=== PATIENT | male | born 1965 | race Two or more races ===

== ENCOUNTER 2016-08-15 21:02 | Inpatient (IN) | payer OTHER ==
[2016-08-15] MEDS ORDERED: KETOROLAC TROMETHAMINE 30 MG/1 ML VIAL IVPUSH ONE (22:07)
[2016-08-15] MEDS ORDERED: KETOROLAC TROMETHAMINE 30 MG/1 ML VIAL ONE (22:16)
--- NOTE | 2016-08-15 22:46 | PDOC ---
History of Present Illness - General History Source: Patient Exam Limitations: No Limitations <Stephane Capellan - Last Filed: 08/15/16 22:46> <Keanu Milligan - Last Filed: 08/16/16 01:48> - General Chief Complaint: Shortness of Breath Stated Complaint: DIFF BREATHING, PAIN Time Seen by Provider: 08/15/16 21:43 - History of Present Illness Initial Comments: 08/15/16 22:46 The patient is a 50 year old male, with a significant past medical history of Kidney stone, anxiety, depression and bipolar disorder, who presents to the emergency department with shortness of breath and left upper quadrant abdominal pain onset today. He describes his pain as moderate in severity, with radiation to the back. He notes that the pain is exacerbated when the region is palpated. He states that he was recently discharged from [facility] for the same symptoms 3 days ago. The patient denies chest pain, headache and dizziness. Denies fever, chills, nausea, vomit, diarrhea and constipation. Allergies: None Past surgical history: Cholecystectomy Social history: Daily alcohol use (3 beers). Pack a day smoker. Cocaine use. ( Stephane Capellan) Past History <Stephane Capellan - Last Filed: 08/15/16 22:46> - Past Medical History Anemia: No Asthma: No Cancer: No Cardiac Disorders: No CVA: No COPD: No CHF: No Dementia: No Diabetes: No GI Disorders: No Disorders: Yes (KIDNEY STONE) HTN: No Hypercholesterolemia: No Kidney Stones: Yes Liver Disease: No Psychiatric Problems: Yes (anxiety,depression,bipolar) Suicide Attempt (Hx): No Seizures: No Thyroid Disease: Yes (?) - Surgical History Abdominal Surgery: No Appendectomy: No Cardiac Surgery: No Cholecystectomy: Yes (in 2011) Lung Surgery: No Neurologic Surgery: No Orthopedic Surgery: No - Reproductive History Testicular Surgery: No - Immunization History Immunization Up to Date: Yes - Psycho/Social/Smoking Cessation Hx Anxiety: Yes Suicidal Ideation: No Smoking History: Current every day smoker Have you smoked in the past 12 months: Yes Number of Cigarettes Smoked Daily: 20 Information on smoking cessation initiated: No 'Breaking Loose' booklet given: 02/16/15 Hx Alcohol Use: No Drug/Substance Use Hx: No Substance Use Type: Alcohol, Cocaine Hx Substance Use Treatment: Yes <Keanu Milligan - Last Filed: 08/16/16 01:48> - Past Medical History Allergies/Adverse Reactions: Allergies Allergy/AdvReac Type Severity Reaction Status Date / Time No Known Allergies Allergy Verified 08/15/16 21:10 Home Medications: Ambulatory Orders NK [No Known Home Medication] 04/22/15 Cardiac Specific PMH - Complaint Specific PMHX Pacemaker: No <Keanu Milligan - Last Filed: 08/16/16 01:48> Review of Systems - Review of Systems Able to Perform ROS?: Yes <Stephane Capellan - Last Filed: 08/15/16 22:46> <Keanu Milligan - Last Filed: 08/16/16 01:48> - Review of Systems Comments:: 08/15/16 22:47 CONSTITUTIONAL: No fever, no chills, no fatigue EYES: No visual changes ENT: No ear pain, no sore throat CARDIOVASCULAR: No chest pain, no palpitations RESPIRATORY: +Shortness of breath, No cough GI: +Left upper quadrant abdominal pain. No nausea, no vomiting, no constipation , no diarrhea GENITOURINARY: No dysuria, no frequency, no hematuria MUSKULOSKELETAL: No backpain, no joint pain, no myalgias SKIN: No rash NEURO: No headache (Stephane Capellan) *Physical Exam <Stephane Capellan - Last Filed: 08/15/16 22:46> <Keanu Milligan - Last Filed: 08/16/16 01:48> - Vital Signs Last Vital Signs Temp Pulse Resp BP Pulse Ox 98.1 F 87 22 156/88 94 L 08/15/16 21:10 08/15/16 22:00 08/15/16 21:10 08/15/16 21:10 08/15/16 21:10 - Physical Exam Comments: 08/15/16 22:47 CONSTITUTIONAL: Well-appearing; well-nourished; in no apparent distress HEAD: Normocephalic; atraumatic EYES: PERRL; EOM intact ENMT: External appears normal; normal oropharynx NECK: Supple; non-tender; no cervical lymphadenopathy CARD: Normal S1, S2; no murmurs, rubs, or gallops CHEST: (+) Reproducible chest wall tenderness to the 4th and 5th intercoastal spaces. RESP: Normal chest excursion with respiration; breath sounds clear and equal bilaterally; no wheezes, rhonchi, or rales ABD: Soft, non-distended; non-tender; no palpable organomegaly, no palpable hernias EXT: Normal ROM in all four extremities; non-tender to palpation; distal pulses intact SKIN: Warm, dry, no rash NEURO: No focal neurological deficiencies. (Stephane Capellan) Heart Score/ECG Review - History History: Slightly suspicious - Electrocardiogram EKG: Non specific repolarization disturbance - Age Age: 45-65 - Risk Factors Risk Factors Heart Score: Yes Hx Hypertension, Yes Smoking History Based on the list above the patient has:: 1-2 risk factors - Troponin Troponin: </= normal limit - Score Heart Score - Total: 3 <Keanu Milligan - Last Filed: 08/16/16 01:48> ED Treatment Course - LABORATORY CBC & Chemistry Diagram: 08/15/16 22:33 08/15/16 22:10 <Stephane Capellan - Last Filed: 08/15/16 22:46> - LABORATORY CBC & Chemistry Diagram: 08/15/16 22:33 08/15/16 22:10 <Keanu Milligan - Last Filed: 08/16/16 01:48> - ADDITIONAL ORDERS Additional order review: Laboratory Results 08/15/16 08/15/16 08/15/16 22:51 22:33 22:10 INR 1.05 Sodium Potassium Chloride Carbon Dioxide Anion Gap BUN Creatinine Creat Clearance w eGFR Random Glucose Calcium Magnesium Total Bilirubin AST ALT Alkaline Phosphatase Creatine Kinase Creatine Kinase Index CK-MB (CK-2) CK-MB (CK-2) Rel Index Cancelled Troponin I B-Natriuretic Peptide 6074.39 H Total Protein Albumin 08/15/16 22:10 INR Sodium 141 Potassium 4.7 D Chloride 108 H Carbon Dioxide 23 Anion Gap 10 BUN 44 H D Creatinine 3.1 H D Creat Clearance w eGFR 21.61 Random Glucose 72 L D Calcium 7.9 L Magnesium 2.5 H Total Bilirubin 0.3 AST 44 H D ALT 37 D Alkaline Phosphatase 141 H D Creatine Kinase 323 H D Creatine Kinase Index 1.8 CK-MB (CK-2) 5.915 H CK-MB (CK-2) Rel Index Troponin I 0.02 B-Natriuretic Peptide Total Protein 6.6 Albumin 2.5 L D 08/15/16 22:33 RBC 4.46 MCV 83.6 MCHC 32.4 RDW 14.6 MPV 8.2 Neutrophils % 72.1 Lymphocytes % 13.5 D Monocytes % 8.3 Eosinophils % 5.6 H D Basophils % 0.5 - RADIOLOGY Radiology Studies Ordered: Category Date Time Status CHEST CT WITHOUT CONTRAST [CT] Stat CT Scan 08/16/16 00:21 Taken CHEST X-RAY PORTABLE* [RAD] Stat Radiology 08/15/16 21:13 Taken - Medications Given in the ED: ED Medications Discontinued Medications Generic Name Dose Route Start Last Admin Trade Name Ana Laura PRN Reason Stop Dose Admin Aspirin 325 mg 08/16/16 01:08 08/16/16 01:29 Ecotrin - PO 08/16/16 01:09 325 mg ONCE ONE Administration Furosemide 80 mg 08/15/16 23:28 08/15/16 23:48 Lasix Injection - IVPUSH 08/15/16 23:29 80 mg ONCE ONE Administration Ketorolac Tromethamine 30 mg 08/15/16 22:07 08/15/16 22:25 Toradol Injection - IVPUSH 08/15/16 22:08 30 mg ONCE ONE Administration Nitroglycerin 1 inch 08/16/16 01:08 08/16/16 01:29 Nitro-Bid 2% Paste - TD 08/16/16 01:09 1 inch ONCE ONE Administration Oxycodone/Acetaminophen 1 combo 08/16/16 01:14 08/16/16 01:29 Percocet 5/325 - PO 08/16/16 01:15 1 combo ONCE ONE Administration Medical Decision Making <Stephane Capellan - Last Filed: 08/15/16 22:46> <Keanu Milligan - Last Filed: 08/16/16 01:48> - Medical Decision Making 08/16/16 01:25 Patient is a 50-year-old male with history of hypertension, alcohol and cocaine use who presents with pleuritic and reproducible left-sided chest pain shortly after discharge from [facility]. Patient endorses that he last used cocaine 48 hours prior to arrival. In the ER, patient is awake and alert, afebrile, nontoxic appearing, with oxygen saturation of 95% on room air, with reproducible left sided chest wall tenderness to palpation within the intercostal spaces #4 and 5. I suspect pleurisy; patient does not appear cocaine toxic at this time. There is no rash and I do not suspect herpes zoster. EKG reveals normal sinus rhythm, with a ventricular rate of 87, with symmetrical T wave inversions in 1, aVL, V5 and V6 as well as inverted T waves in 2 and flat T waves in aVF when compared to previous EKG obtained 04/22/2015. ACS is likley. Chest x-ray reveals cardiomegaly, cephalization, interstitial edema and intralobular thickening which is most prominent on the right. Lung findings may be related to patient's smoking of cocaine (crack lung). CBC is within normal limit. CMP reveals elevated BUN and creatinine when compared to previous consistent with acute renal insufficiency. Magnesium is noted to be 2.5. Sodium bicarbonate is noted to be 23 and anion gap is noted to be 10. Troponin is negative at this time. Patient had received aspirin-325 mg by mouth, transdermal nitroglycerin-1 inch, as well as Lasix-80 mg IV. No significant diuresis has been observed at this time. (Keanu Milligan) *DC/Admit/Observation/Transfer <Stephane Capellan - Last Filed: 08/15/16 22:46> - Discharge Dispostion Admit: Yes <Keanu Milligan - Last Filed: 08/16/16 01:48> Diagnosis at time of Disposition: Acute coronary syndrome Acute renal failure Qualifiers: Acute renal failure type: unspecified Qualified Code(s): N17.9 - Acute kidney failure, unspecified - Discharge Dispostion Condition at time of disposition: Fair - Attestations Scribe Attestion: 08/15/16 22:47 Documentation prepared by Stephane Capellan, acting as medical office technician for Keanu Milligan MD (Stephane Capellan) Physician Attestion: 08/16/16 01:25 The documentation was prepared by the scribe under my direct supervision. I have reviewed the documentation which correctly represents the findings, medical decision-making and critical action taken by me. (Keanu Milligan)
[2016-08-15 22:52] LABS: BASOPHIL 0.5 % (0-2.0); EOSINOPHIL 5.6 % (0-4.5); MCH 27.1 pg (25.7-33.7); MCHC 32.4 g/dl (32.0-35.9); MEAN CELL VOLUME 83.6 fl (80-96); MEAN PLT VOLUME 8.2 fl (7.5-11.1); NEUTROPHILS 72.1 % (42.8-82.8); PLATELET COUNT 273 K/MM3 (134-434); RDW 14.6 % (11.9-15.9); WHITE BLOOD COUNT 10.1 K/mm3 (4.0-10.0)
[2016-08-15 23:14] LABS: ALBUMIN 2.5 g/dl (3.4-5.0); BILIRUBIN,TOTAL 0.3 mg/dL (0.2-1.0); CALCIUM 7.9 mg/dL (8.5-10.1); COCKROFT - GAULT 39.07; CREATININE 3.1 mg/dL (0.7-1.3); MAGNESIUM 2.5 mg/dL (1.8-2.4); TOT PROT 6.6 g/dl (6.4-8.2)
[2016-08-15 23:17] LABS: TROPONIN I 0.02 ng/ml (0.00-0.05)
[2016-08-15] MEDS ORDERED: FUROSEMIDE 40 MG/4 ML INJECTABLE VIAL IVPUSH ONE (23:28)
[2016-08-15 23:35] LABS: INR 1.05 (0.82-1.09); PROTHROMBIN TIME (PATIENT) 11.6 SEC (9.98-11.88)
[2016-08-16] MEDS ORDERED: ASPIRIN 325 MG ENTERIC COATED TABLET (FP) PO ONE (01:08)
[2016-08-16] MEDS ORDERED: NITROGLYCERIN 2% OINTMENT - 1GM PACKET TD ONE ×2 (01:08→01:23)
[2016-08-16] MEDS ORDERED: OXYCODONE/APAP 5/325MG COMBO TABLET PO ONE (01:14)
[2016-08-16] MEDS ORDERED: ASPIRIN 325 MG TABLET ONE (01:16)
[2016-08-16] MEDS ORDERED: OXYCODONE/APAP 5/325MG COMBO TABLET ONE (01:16)
--- NOTE | 2016-08-16 02:53 | HP ---
[id number] year old man with h/o anxiety, depression, bipolar, schizoaffective disorder and renal colic who present today with SOB and palpitations in the setting of crack use today. He sought treatment 08/11 for similar c/o at [facility] for which he left AMA. He also felt a "pop" in his upper back during an episode of coughing. ER course was notable for: (1) ARMIDA (2) elevated BNP (3) EKG changes notable for twi I, II, V5, V6 Recent Travel: denies PAST MEDICAL HISTORY: anxiety, bipolar d/o, schizoaffective, kidney stones PAST SURGICAL HISTORY: cholecystectomy, bilateral rotator cuff repair Social History: Smoking: current daily 19 pack years Alcohol: 3-4 daily [place] Drugs: $25 crack cocaine daily Multiple incarcerations Family History: father in his 60's from "heart disease" mother in her 60's from "heart disease" brother alive with CKD Allergies No Known Allergies Allergy (Verified 08/15/16 21:10) HOME MEDICATIONS: Home Medications 3 Medication Instructions Recorded NK [No Known Home Medication] 04/22/15 REVIEW OF SYSTEMS CONSTITUTIONAL: Absent: fever, chills, diaphoresis, generalized weakness, malaise, loss of appetite, weight change HEENT: Absent: rhinorrhea, nasal congestion, throat pain, throat swelling, difficulty swallowing, mouth swelling, ear pain, eye pain, visual changes CARDIOVASCULAR: Absent: chest pain, syncope, irregular heart rate, lightheadedness palpitations s/p crack use, peripheral edema RESPIRATORY: Absent: dyspnea with exertion, wheezing, stridor, hemoptysis productive cough with yellow sputum, SOB at rest, 3 pillow orthopnea GASTROINTESTINAL: Absent: abdominal pain, abdominal distension, nausea, vomiting, diarrhea, constipation, melena, hematochezia GENITOURINARY: Absent: dysuria, frequency, urgency, hesitancy, hematuria, flank pain, genital pain MUSCULOSKELETAL: Absent: myalgia, arthralgia, joint swelling, back pain, neck pain SKIN: Absent: rash, itching, pallor HEMATOLOGIC/IMMUNOLOGIC: Absent: easy bleeding, easy bruising, lymphadenopathy, frequent infections ENDOCRINE: Absent: unexplained weight gain, unexplained weight loss, heat intolerance, cold intolerance NEUROLOGIC: Absent: headache, focal weakness or paresthesias, dizziness, unsteady gait, seizure, mental status changes, bladder or bowel incontinence PSYCHIATRIC: Absent: anxiety, depression, suicidal or homicidal ideation, hallucinations. PHYSICAL EXAMINATION Vital Signs - 24 hr 3 08/15/16 08/15/16 21:10 22:00 Temperature 98.1 F Pulse Rate 94 H 87 Respiratory 22 Rate Blood Pressure 156/88 O2 Sat by Pulse 94 L Oximetry (%) GENERAL: Awake, alert, and fully oriented, in no acute distress. HEAD: Normal with no signs of trauma. EYES: Pupils equal, round and reactive to light, extraocular movements intact, sclera anicteric, conjunctiva clear. No lid lag. EARS, NOSE, THROAT: Ears normal, nares patent, oropharynx clear without exudates. Moist mucous membranes. NECK: Normal range of motion, supple without lymphadenopathy, JVD, or masses. LUNGS: Breath sounds equal. No wheezes. Fine crackles in bases bilaterally. No accessory muscle use. HEART: Regular rate and rhythm, normal S1 and S2 without murmur, rub or gallop. ABDOMEN: Soft, nontender, not distended, normoactive bowel sounds, no guarding, no rebound, no masses. No hepatomegaly or splenomegaly. MUSCULOSKELETAL: Normal range of motion at all joints. No bony deformities or tenderness. No CVA tenderness. Tenderness present in left upper back 8th rib. UPPER EXTREMITIES: 2+ pulses, warm, well-perfused. No cyanosis. No clubbing. No peripheral edema. LOWER EXTREMITIES: 2+ pulses, warm, well-perfused. No calf tenderness. No peripheral edema. NEUROLOGICAL: Cranial nerves II-XII intact. Normal speech. Normal gait. PSYCHIATRIC: Cooperative. Good eye contact. Appropriate mood and affect. SKIN: Warm, dry, normal turgor, no rashes or lesions noted, normal capillary refill. Laboratory Results - last 24 hr 3 08/15/16 08/15/16 08/15/16 22:10 22:10 22:33 WBC 10.1 H RBC 4.46 Hgb 12.1 D Hct 37.3 MCV 83.6 MCHC 32.4 RDW 14.6 Plt Count 273 MPV 8.2 Neutrophils % 72.1 Lymphocytes % 13.5 D Monocytes % 8.3 Eosinophils % 5.6 H D Basophils % 0.5 INR Sodium 141 Potassium 4.7 D Chloride 108 H Carbon Dioxide 23 Anion Gap 10 BUN 44 H D Creatinine 3.1 H D Creat Clearance w eGFR 21.61 Random Glucose 72 L D Calcium 7.9 L Magnesium 2.5 H Total Bilirubin 0.3 AST 44 H D ALT 37 D Alkaline Phosphatase 141 H D Creatine Kinase 323 H D Creatine Kinase Index 1.8 CK-MB (CK-2) 5.915 H CK-MB (CK-2) Rel Index Cancelled Troponin I 0.02 B-Natriuretic Peptide Total Protein 6.6 Albumin 2.5 L D 3 08/15/16 08/15/16 22:33 22:51 WBC RBC Hgb Hct MCV MCHC RDW Plt Count MPV Neutrophils % Lymphocytes % Monocytes % Eosinophils % Basophils % INR 1.05 Sodium Potassium Chloride Carbon Dioxide Anion Gap BUN Creatinine Creat Clearance w eGFR Random Glucose Calcium Magnesium Total Bilirubin AST ALT Alkaline Phosphatase Creatine Kinase Creatine Kinase Index CK-MB (CK-2) CK-MB (CK-2) Rel Index Troponin I B-Natriuretic Peptide 6074.39 H Total Protein Albumin EKG with TWI in I,II,V5,V6 CXR wet read by me with official read pending: congestion in bilateral lower lai. Enlarged cardiac silhouette. CT read per Blanca Ayala: Small bilateral pleural effusions. Peribronchovascular ground glass densities and minimal interlobular septal thickening lung apices. Findings may represent interstitial edema in the setting of CHF. Subacute or chronic fracture left posterior rib 8. ASSESSMENT/PLAN: A: This is a 50 year old man with h/o anxiety, depression, bipolar, schizoaffective disorder and renal colic who present today with SOB and palpitations in the setting of crack use today. Pt has had productive cough. He also felt a "pop" in his upper back during an episode of coughing. P: Cardiac -CHF -CAD -lasix -oxygen 2LNC -cardiology Git[place] consulted -consider echo -telemetry monitoring -ASA Renal -ARMIDA -Cr 3.1. increase from 0.3 at [place] on 08/11 -likely secondary to new onset HF given elevated BNP, cardiomegaly and pulmonary congestion on my wet read CXR -Strict I&O -CMP -consider renal consult M/S Acute vs chronic rib fracture -rest -APAP PRN FEN -cardiac diet PPX -OOB as tolerated Dispo: Patient currently needs inpatient observation Code status: Patient is FULL CODE. Visit type - Emergency Visit Emergency Visit: Yes ED Registration Date: 08/16/16 Care time: The patient presented to the Emergency Department on the above date and was hospitalized for further evaluation of their emergent condition. - New Patient This patient is new to me today: Yes Date on this admission: 08/22/16 - Critical Care Critical Care patient: No
[2016-08-16] MEDS ORDERED: ACETAMINOPHEN 650 MG/20.3 ML ORAL SOLUTION (CUPS) PO ONE (04:02)
[2016-08-16] MEDS: morphine CARPU-JECT 2 MG/1 ML DISP.SYRIN IVPUSH PRN ×4 (08:30→23:42)
--- NOTE | 2016-08-16 08:33 | CON.CARD ---
Consult Consult Specialty:: cardio Referred by:: hospitalist Reason for Consultation:: sob, palpitations - History of Present Illness Chief Complaint: same History of Present Illness: 50 year old man with who presented with SOB and palpitations in the setting of crack use today. He sought treatment 08/11 for similar c/o at [facility] for which he left AMA described heart racing/vigorous beats, associated with sob. was also coughing vigorously when felt strong "pop" and pain L side/flank remains with severe pain in that region, worse with position change/movement sob and palpitations resolved no cp ever admits to feet swollen at home recently, and sob with walking which is recent wt 204 at home recently, up here PMH: h/o anxiety, depression, bipolar, schizoaffective disorder and renal colic; + etoh (2-4 beers daily) +crack cocaine no prior known h/o cad or chf - Alcohol/Substance Use Hx Alcohol Use: No - Smoking History Smoking history: Current every day smoker Have you smoked in the past 12 months: Yes Aproximately how many cigarettes per day: 20 Home Medications - Allergies Allergies/Adverse Reactions: Allergies Allergy/AdvReac Type Severity Reaction Status Date / Time No Known Allergies Allergy Verified 08/15/16 21:10 - Home Medications Home Medications: Ambulatory Orders NK [No Known Home Medication] 04/22/15 Family Disease History - Family Disease History Family Disease History: Diabetes: Mother (HTN), Brother, Heart Disease: Father ( HTN,ALCOHOL), Mother Review of Systems - Review of Systems Constitutional: denies: Chills, Fever Eyes: denies: Eye Pain HENT: denies: Nasal Congestion Neck: denies: Stiffness Cardiovascular: reports: Palpitations Respiratory: denies: Orthopnea, PND Gastrointestinal: denies: Diarrhea, Rectal Bleeding Genitourinary: denies: Burning, Hematuria Musculoskeletal: denies: Muscle Pain Integumentary: denies: Rash Neurological: denies: Numbness, Seizure, Syncope Endocrine: denies: Excessive Sweating Hematology/Lymphatic: denies: Excessive Bleeding Vital Signs: Vital Signs Temperature 98 F 08/16/16 03:24 Pulse Rate 80 08/16/16 03:24 Respiratory Rate 20 08/16/16 03:24 Blood Pressure 130/89 08/16/16 03:24 O2 Sat by Pulse Oximetry (%) 100 08/16/16 03:24 Constitutional: Yes: Well Nourished, No Distress Eyes: No: Sclera Icterus HENT: No: Nasal Congestion Neck: No: Decreased ROM Respiratory: Yes: CTA Bilaterally. No: Accessory Muscle Use Gastrointestinal: Yes: Normal Bowel Sounds. No: Distention, Hepatomegaly, Palpable Mass, Tenderness Cardiovascular: Yes: Regular Rate and Rhythm JVD: Yes Carotid Bruit: No PMI: Non-Displaced Heart Sounds: Yes: S1, S2. No: Gallop Murmur: No: Systolic Murmur, Diastolic Murmur Musculoskeletal: Yes: Other (No kyphosis) Extremities: No: Cold, Cyanosis Edema: No Peripheral Pulses: 2+ Left Carotid, 2+ Right Carotid, 2+ Left Doralis Pedis, 2+ Right Dorsalis Pedis Integumentary: No: Jaundice Neurological: Yes: Alert, Oriented (x3) Psychiatric: No: Agitated - Other Data Labs, Other Data: INR, PTT INR 1.05 (0.82-1.09) 08/15/16 22:33 Troponin, BNP 08/16/16 05:18 Troponin I 0.02 Troponin, BNP 08/16/16 05:18 Troponin I 0.02 Laboratory Tests 04/22/15 08/15/16 08/15/16 03:44 22:10 22:33 WBC 10.1 H Hgb 12.1 D Plt Count 273 Sodium 141 Potassium 4.7 D Carbon Dioxide 23 BUN 44 H D Creatinine 3.1 H D AST 44 H D ALT 37 D Alkaline Phosphatase 141 H D Creatine Kinase 323 H D Troponin I 0.02 B-Natriuretic Peptide 222.85 H Albumin 2.5 L D 08/15/16 08/16/16 22:51 05:18 WBC Hgb Plt Count Sodium Potassium Carbon Dioxide BUN Creatinine AST ALT Alkaline Phosphatase Creatine Kinase Troponin I 0.02 B-Natriuretic Peptide 6074.39 H Albumin tele: NSR ECG 08/15: NSR, normal axis, prolonged QT; TWIs lateral leads, no path q's or ST shifts (changed vs prior 04/28) Imaging - Results Chest X-ray: Report Reviewed, Image Reviewed Assessment/Plan elevated BNP, acute CHF (NOS): -bnp 6K, from 200 in 04/28 -however, in setting of ARMIDA with severely reduced GFR, this is uninterpretable ( renal fxn normal in 04/28) -pulmonary edema and effusions/fluid in fissures on CXR and CT scan -recent sob sx's at home, new for him -echo (r/o drug-induced or etoh LV syst dysfunction, abnormal ekg noted) -given no active sob sx's at rest, and oxygenating well, will defer lasix for now, pending input from dr bhandari renal -tele monitoring for ventric arrhythmias sob, palpitations: -likely sec to acute crack cocaine intoxication, these specific sx's now resolved -trop neg x 2, will rpt 3rd set (ordered) -ECG with acute changes here vs 04/28: prolonged QT, lateral lead TWIs -serial ECG ordered -f/u echo -ischemia evaluation will be considered depending on test results and clinical course (stress echo?) -dangers (incl CV ) of cocaine use reviewed, and complete abstinence rec'd -no BB (acute cocaine--risk of vasospasm) ARMIDA: -sono ordered -plan per renal sap consultant LFT abnormalities: -per hospitalist
--- NOTE | 2016-08-16 09:17 | EKG ---
Test Reason : Blood Pressure : / mmHG Vent. Rate : 087 BPM Atrial Rate : 087 BPM P-R Int : 162 ms QRS Dur : 086 ms QT Int : 438 ms P-R-T Axes : 031 043 160 degrees QTc Int : 527 ms NORMAL SINUS RHYTHM T WAVE ABNORMALITY, CONSIDER LATERAL ISCHEMIA PROLONGED QT ABNORMAL ECG WHEN COMPARED WITH ECG OF 22-APR-2015 09:21, PREMATURE ATRIAL COMPLEXES ARE NO LONGER PRESENT NONSPECIFIC T WAVE ABNORMALITY NOW EVIDENT IN INFERIOR LEADS T WAVE INVERSION NOW EVIDENT IN LATERAL LEADS QT HAS LENGTHENED Confirmed by EZRA BAEZA, RASHMI ([id number]) on 08/16/2016 9:16:42 AM Referred By: Confirmed By:RASHMI MUNGUIA MD
[2016-08-16 09:46] LABS: BASOPHIL 0.6 % (0-2.0); EOSINOPHIL 6.8 % (0-4.5); MCH 27.5 pg (25.7-33.7); MCHC 32.6 g/dl (32.0-35.9); MEAN CELL VOLUME 84.5 fl (80-96); MEAN PLT VOLUME 7.8 fl (7.5-11.1); NEUTROPHILS 69.4 % (42.8-82.8); PLATELET COUNT 275 K/MM3 (134-434); RDW 14.5 % (11.9-15.9); WHITE BLOOD COUNT 9.1 K/mm3 (4.0-10.0)
[2016-08-16 10:09] LABS: ALBUMIN 2.5 g/dl (3.4-5.0); CALCIUM 7.6 mg/dL (8.5-10.1); COCKROFT - GAULT 37.69; CREATININE 3.3 mg/dL (0.7-1.3)
[2016-08-16 10:11] LABS: BILIRUBIN,TOTAL 0.2 mg/dL (0.2-1.0); TOT PROT 6.4 g/dl (6.4-8.2)
[2016-08-16] MEDS: ASPIRIN COATED 81 MG TABLET.EC PO SCH (10:19)
[2016-08-16 11:26] LABS: TROPONIN I 0.02 ng/ml (0.00-0.05)
[2016-08-16 12:44] VITALS: BMI 31.6
--- NOTE | 2016-08-16 12:44 | CON.NEP ---
Consult Consult Specialty:: Nephrology Reason for Consultation:: ckd/armida - History of Present Illness Chief Complaint: chest pain History of Present Illness: This is a 50 year old man with history of ckd, bipolar illness, previously on lithium, cocaine use who presented with chest pain and dyspnea. He uses cocaine daily. Was discharged from another hospital 3 days ago also for dyspnea and chest pain. Says he feels like something pops on left side Has no difficulty urinating but has had little urine. Apparently his brother and mother have CKD He does not take medications but was on depakote and ambien before - History Source History Provided By: Patient, Medical Record Limitations to Obtaining History: No Limitations - Past Medical History Cardio/Vascular: Yes: HTN Renal/: Yes: Renal Inusuff Psych: Yes: Addictions, Bipolar - Past Surgical History Past Surgical History: Yes: None - Alcohol/Substance Use Hx Alcohol Use: No History of Substance Use: reports: Cocaine - Smoking History Smoking history: Current every day smoker Have you smoked in the past 12 months: Yes Aproximately how many cigarettes per day: 20 Home Medications - Allergies Allergies/Adverse Reactions: Allergies Allergy/AdvReac Type Severity Reaction Status Date / Time No Known Allergies Allergy Verified 08/15/16 21:10 - Home Medications Home Medications: Ambulatory Orders NK [No Known Home Medication] 04/22/15 Family Disease History - Family Disease History Family Disease History: Diabetes: Mother (HTN), Brother (CKD), Heart Disease: Father (HTN,ALCOHOL), Mother, Other: Brother Review of Systems - Review of Systems Constitutional: reports: No Symptoms Eyes: reports: No Symptoms HENT: reports: No Symptoms Neck: reports: No Symptoms Cardiovascular: reports: Chest Pain, Edema, Palpitations, Shortness of Breath Respiratory: reports: Cough, SOB Gastrointestinal: reports: No Symptoms Genitourinary: reports: No Symptoms Breasts: reports: No Symptoms Reported Musculoskeletal: reports: No Symptoms Integumentary: reports: No Symptoms Neurological: reports: No Symptoms Endocrine: reports: No Symptoms Hematology/Lymphatic: reports: No Symptoms Psychiatric: reports: No Symptoms Nephrology Consult - Height Height: 5 ft 9 in - Weight Weight: 214 lb 9.6 oz - BMI Body Mass Index (BMI): 31.6 - Lab Results CBC,BMP: CBC, BMP 08/16/16 09:25 08/16/16 09:25 Anion Gap: Anion Gap Anion Gap 10 (8-16) 08/16/16 09:25 - Imaging Cat Scan: Report Reviewed (mediastinla adenopathy fracture rib posteriorly chf) - Physical Examination Vital Signs: Vital Signs Temperature 98 F 08/16/16 03:24 Pulse Rate 80 08/16/16 03:24 Respiratory Rate 20 08/16/16 03:24 Blood Pressure 130/89 08/16/16 03:24 O2 Sat by Pulse Oximetry (%) 100 08/16/16 03:24 Constitutional: Yes: Well Nourished, Mild Distress Eyes: Yes: Conjunctiva Clear HENT: Yes: Atraumatic, Normocephalic Neck: Yes: Supple, Trachea Midline Cardiovascular: Yes: Regular Rate and Rhythm Respiratory: Yes: Regular, Diminished Gastrointestinal: Yes: Normal Bowel Sounds Renal/: Yes: WNL Musculoskeletal: Yes: WNL Edema: No Neurological: Yes: Alert, Oriented Psychiatric: Yes: Alert, Oriented Assessment/Plan IMPRESSION -ARMIDA on CKD likely- may have lithium induced ckd which is why he no longer takes it. Also occasionally cocaine is associated with ckd -Bipolar illness -has a normal calcium when correwcted fro the hypoalbuminemia - albumin is only 2.5- malnutrition h/o substance abuse- may have some pulmonary disease from additives in cocaine - mediastinal adenopathy PLAN obtain urinalysis will likely need a biopsy of a node anca renal sono would prefer not to diurese since creat is rising and he is relatively asymptomatic urine protein and creat will need a psych and pulmonary eval ldh level MV
[2016-08-16 13:54] LABS: TROPONIN I 0.02 ng/ml (0.00-0.05)
[2016-08-16] MEDS ORDERED: OXYCODONE/APAP 5/325MG COMBO TABLET PO PRN (14:24)
[2016-08-16] MEDS: oxyCODONE HCL 5 MG TABLET PO PRN ×2 (15:41→21:57)
[2016-08-16] MEDS: LIDOCAINE 5% TOPICAL PATCH TP SCH (15:42)
[2016-08-16] MEDS: ACETAMINOPHEN 325 MG TABLET (FP) PO PRN ×2 (15:42→21:57)
--- NOTE | 2016-08-16 16:10 | EKG ---
Test Reason : Blood Pressure : / mmHG Vent. Rate : 081 BPM Atrial Rate : 081 BPM P-R Int : 158 ms QRS Dur : 086 ms QT Int : 454 ms P-R-T Axes : 044 043 158 degrees QTc Int : 527 ms NORMAL SINUS RHYTHM T WAVE ABNORMALITY, CONSIDER LATERAL ISCHEMIA PROLONGED QT ABNORMAL ECG WHEN COMPARED WITH ECG OF 15-AUG-2016 21:20, NO SIGNIFICANT CHANGE WAS FOUND Confirmed by RASHMI MUNGUIA MD ([id number]) on 08/16/2016 4:10:09 PM Referred By: Bella RODRIGUEZ Confirmed By:RASHMI MUNGUIA MD
--- NOTE | 2016-08-16 17:07 | PN ---
Physical Exam: SUBJECTIVE: Patient seen and examined. He is complaining of left upper back discomfort and pain. OBJECTIVE: Tolerating room air, ambulating Will start patient on Percocet for acute pain Lidoderm patch for left upper back rib pain. Vital Signs Period Temp Pulse Resp BP Sys/Easley Pulse Ox Last 24 Hr 98 F-98.9 F 78-88 18-20 130-158/88-96 100-100 GENERAL: Awake, alert, and fully oriented, in no acute distress. HEAD: Normal with no signs of trauma. EYES: Pupils equal, round and reactive to light, extraocular movements intact, sclera anicteric, conjunctiva clear. No lid lag. EARS, NOSE, THROAT: Ears normal, nares patent, oropharynx clear without exudates. Moist mucous membranes. NECK: Normal range of motion, supple without lymphadenopathy, JVD, or masses. LUNGS: Bilateral lungs bases with crackles, no accessory muscle use, tolerating room air, no dyspnea on exam or on exertion HEART: Regular rate and rhythm, normal S1 and S2 without murmur, rub or gallop. ABDOMEN: Soft, nontender, not distended, normoactive bowel sounds, no guarding, no rebound, no masses. No hepatomegaly or splenomegaly. MUSCULOSKELETAL: Tenderness, +pain in left upper back 8th rib. UPPER EXTREMITIES: 2+ pulses, warm, well-perfused. No cyanosis. No clubbing. No peripheral edema. LOWER EXTREMITIES: 2+ pulses, warm, well-perfused. No calf tenderness. No peripheral edema. NEUROLOGICAL: Normal speech. Steady gait PSYCHIATRIC: Cooperative. Good eye contact. Appropriate mood and affect. SKIN: Warm, dry, normal turgor, no rashes or lesions noted, normal capillary refill. Laboratory Results - last 24 hr 08/16/16 08/16/16 08/16/16 05:18 07:00 09:25 WBC 9.1 RBC 4.17 Hgb 11.5 L Hct 35.2 L MCV 84.5 MCHC 32.6 RDW 14.5 Plt Count 275 MPV 7.8 Neutrophils % 69.4 Lymphocytes % 14.5 Monocytes % 8.7 Eosinophils % 6.8 H Basophils % 0.6 Sodium Potassium Chloride Carbon Dioxide Anion Gap BUN Creatinine Creat Clearance w eGFR Random Glucose Calcium Total Bilirubin AST ALT Alkaline Phosphatase Creatine Kinase Creatine Kinase Index CK-MB (CK-2) CK-MB (CK-2) Rel Index Troponin I 0.02 Cancelled Total Protein Albumin 08/16/16 08/16/16 08/16/16 09:25 13:00 13:00 WBC RBC Hgb Hct MCV MCHC RDW Plt Count MPV Neutrophils % Lymphocytes % Monocytes % Eosinophils % Basophils % Sodium 143 Potassium 4.4 Chloride 108 H Carbon Dioxide 25 Anion Gap 10 BUN 46 H Creatinine 3.3 H Creat Clearance w eGFR 20.11 Random Glucose 105 D Calcium 7.6 L Total Bilirubin 0.2 D AST 33 D ALT 32 Alkaline Phosphatase 131 H Creatine Kinase 274 Creatine Kinase Index 1.7 CK-MB (CK-2) 4.527 H CK-MB (CK-2) Rel Index Cancelled Troponin I 0.02 0.02 Total Protein 6.4 Albumin 2.5 L Active Medications Generic Name Dose Route Start Last Admin Trade Name Freq PRN Reason Stop Dose Admin Acetaminophen 650 mg 08/16/16 14:28 08/16/16 15:42 Tylenol - PO 650 mg Q6H PRN Administration PAIN SCALE 6-10 Aspirin 81 mg 08/16/16 10:00 08/16/16 10:19 Ecotrin - PO 81 mg DAILY RATNA Administration Lidocaine 1 patch 08/16/16 15:15 08/16/16 15:42 Lidoderm Patch - TP 1 patch DAILY RATNA Administration Morphine Sulfate 2 mg 08/16/16 07:52 08/16/16 12:44 Morphine Injection - IVPUSH 2 mg Q4H PRN Administration PAIN Oxycodone HCl 10 mg 08/16/16 14:28 08/16/16 15:41 Roxicodone - PO 10 mg Q6H PRN Administration PAIN SCALE 6-10 ASSESSMENT/PLAN: Patient is a 50 year old man with a significant past medical history of anxiety , depression, bipolar, schizoaffective disorder and renal colic who presented to the ED with shortness of breath and palpitations after using crack/cocaine. He admits to apx 2-4 beers per day and use of crack cocaine. Patient was recently at [facility] on 08/11/2016 for similar symptoms but left AMA. He also reports a chronic cough and felt pain on his left upper back while coughing. Imaging: Chest CT 08/15/2016: (1) no evidence of pneumonia (2) bilateral pleural effusions with LL atelectatis (3) mediastinal lymphadenopathy of uncertain etiology (4) fracture left posterior eighth rib. Renal Ultrasound 08/16/2016: Possible left nephrolithiosis, no evidence of hydronephrosis. Possible non obstructive calculus of the left kidney. Cardiology/Pulmonary: Shortness of Breath/Palpitations - acute Assessment/Plan: Patient describes palpitations associated with shortness of breath with excessive coughing on admission Now shortness of breath has resolved, he is tolerating room air, no dyspnea reported on ambulation Denies chest pain on exam + pain on left flank area, pain persistent with any movement Troponins x 3 negative Was given Lasix 80mg IV overnight On ASA 81mg Echo ordered Serial EKGs ordered Cardiology following Renal: Acute Kidney Injury Assessment/Plan: Creatinine 3.1>3.3 Unclear etiology, but likely due to elevated BNP, heart failure and pulmonary congestion Renal consulted and following Trend BUN/Creat. Skeletal: Rib fracture seen on CT scan - acute vs. chronic Assessment/Plan: Monitor pain with Percocet and Lidoderm patch F.E.N. Fluids: tolerating PO Electrolytes: monitor with a.m. labs Nutrition: low sodium diet Prophylaxis: DVT: ambulatory patient GI: deferred for now Disposition: Patient currently needs inpatient observation. Full Code. Visit type - Emergency Visit Emergency Visit: Yes ED Registration Date: 08/16/16 Care time: The patient presented to the Emergency Department on the above date and was hospitalized for further evaluation of their emergent condition. - New Patient This patient is new to me today: Yes Date on this admission: 08/17/16 - Critical Care Critical Care patient: No - Discharge Referral Referred to [facility] Med P.C.: No
[2016-08-16 22:54] LABS: URINE APPEARANCE SLCLOUDY; URINE BILIRUBIN NEGATIVE (NEGATIVE); URINE COLOR LTYELLOW; URINE GLUCOSE (UA) NEGATIVE (NEGATIVE); URINE KETONE NEGATIVE (NEGATIVE); URINE NITRITE NEGATIVE (NEGATIVE); URINE UROBILINOGEN NEGATIVE E.U./dl (0.2-1.0)
[2016-08-16 23:02] LABS: URINE BLOOD 3+ (NEGATIVE); URINE LEUK ESTERASE TRACE (NEGATIVE); URINE PROTEIN 3+ (NEGATIVE)
[2016-08-16 23:03] LABS: GRANULAR CASTS 60 /lpf; URINE BACTERIA RARE /hpf (NONE SEEN); URINE HYALINE CAST 3 /lpf; URINE MUCUS RARE; URINE RBC 269 /hpf (0-3); URINE WBC 42 /hpf (3-5); YEAST RARE
[2016-08-17] MEDS ORDERED: PT OWN MED DRAWER 7, Y5N ONE (08:01)
[2016-08-17 08:11] LABS: BASOPHIL 0.5 % (0-2.0); MCH 28.1 pg (25.7-33.7); MCHC 33.5 g/dl (32.0-35.9); NEUTROPHILS 73.5 % (42.8-82.8); PLATELET COUNT 280 K/MM3 (134-434); RDW 14.5 % (11.9-15.9); WHITE BLOOD COUNT 10.6 K/mm3 (4.0-10.0)
[2016-08-17 08:41] LABS: ALBUMIN 2.6 g/dl (3.4-5.0); BILIRUBIN,TOTAL 0.3 mg/dL (0.2-1.0); CALCIUM 7.6 mg/dL (8.5-10.1); COCKROFT - GAULT 39.44; CREATININE 3.2 mg/dL (0.7-1.3); TOT PROT 6.5 g/dl (6.4-8.2)
[2016-08-17] MEDS: oxyCODONE HCL 5 MG TABLET PO PRN (10:01)
[2016-08-17] MEDS: LIDOCAINE 5% TOPICAL PATCH TP SCH (10:02)
[2016-08-17] MEDS: ASPIRIN COATED 81 MG TABLET.EC PO SCH (10:02)
[2016-08-17] MEDS: ACETAMINOPHEN 325 MG TABLET (FP) PO PRN (10:02)
--- NOTE | 2016-08-17 10:20 | PN ---
Progress Note, Physician Chief Complaint: sob, palpit History of Present Illness: still with ongoing L rib pain; no cp no more sob, palpitations +cocaine abuse, + etoh - Current Medication List Current Medications: Active Medications Acetaminophen (Tylenol -) 650 mg PO Q6H PRN PRN Reason: PAIN SCALE 6-10 Last Admin: 08/17/16 10:02 Dose: 650 mg Aspirin (Ecotrin -) 81 mg PO DAILY [facility] Last Admin: 08/17/16 10:02 Dose: 81 mg Lidocaine (Lidoderm Patch -) 1 patch TP DAILY [facility] Last Admin: 08/17/16 10:02 Dose: 1 patch Morphine Sulfate (Morphine Injection -) 2 mg IVPUSH Q4H PRN PRN Reason: PAIN Last Admin: 08/16/16 23:42 Dose: 2 mg Oxycodone HCl (Roxicodone -) 10 mg PO Q6H PRN PRN Reason: PAIN SCALE 6-10 Last Admin: 08/17/16 10:01 Dose: 10 mg - Objective Vital Signs: Vital Signs Temperature 97.7 F 08/17/16 05:54 Pulse Rate 71 08/17/16 05:54 Respiratory Rate 20 08/17/16 05:54 Blood Pressure 140/86 08/17/16 05:54 O2 Sat by Pulse Oximetry (%) 96 08/16/16 21:00 Constitutional: Yes: Well Nourished, No Distress, Calm Eyes: No: Sclera Icterus HENT: No: Nasal Congestion Cardiovascular: Yes: Regular Rate and Rhythm, S1, S2, Other (PMI non diplaced). No: Gallop, Murmur Respiratory: Yes: CTA Bilaterally. No: Accessory Muscle Use, Rales, Wheezes Gastrointestinal: Yes: Normal Bowel Sounds, Soft. No: Tenderness Musculoskeletal: Yes: Other (No kyphosis) Extremities: No: Cold Edema: No Integumentary: No: Jaundice Neurological: Yes: Alert, Oriented (x3) Psychiatric: No: Agitated Labs: CBC, BMP 08/17/16 05:35 08/17/16 05:35 INR, PTT INR 1.05 (0.82-1.09) 08/15/16 22:33 - ....Imaging EKG: Other (tele: NSR) Assessment/Plan ECG 08/16 with acute changes here vs 1/16: NSR, prolonged QT, lateral lead TWIs ( no ST segment shifts) ECG 08/17: NSR, QT shortened (<500 msec now), o/w no change vs prior Renal sono: ? L stone; no hydro or acute pathology acute CHF (NOS): -bnp 6K, from 200 in 04/28 (though new renal dysfunction present) -pulmonary edema and effusions/fluid in fissures on CXR and CT scan -recent sob sx's at home, new for him, likely due to pulm congestion already at that time -echo pending (r/o drug-induced or etoh LV syst dysfunction, abnormal ekg noted) -given no active sob sx's at rest, and oxygenating well, will defer lasix for now, as per renal rec.s sob, palpitations/cocaine abuse: -likely sec to acute crack cocaine intoxication, these specific sx's now resolved -new TWIs on ECG, trop neg x 4 -f/u echo for LV fxn -ischemia evaluation will be considered depending on test results and clinical course (stress echo?) -dangers (incl CV ) of cocaine use reviewed, and complete abstinence rec'd -no BB (acute cocaine--risk of vasospasm) -no ASA, statin unless clinical findings of myocardial ischemia present themselves -tele monitoring for ventric arrhythmias x 48 hrs--if benign in am, will d/c tele ARMIDA: -renal fxn worsening slightly -plan per renal team LFT abnormalities: -per hospitalist
--- NOTE | 2016-08-17 11:12 | PN ---
Physical Exam: SUBJECTIVE: Patient seen and examined. He denies any shortness of breath. He denies chest pain. OBJECTIVE: + left upper back pain Appears comfortable at rest Ambulating the hallways without any evidence of dyspnea Vital Signs Period Temp Pulse Resp BP Sys/Easley Pulse Ox Last 24 Hr 97.7 F-98.8 F 63-90 20-20 137-148/55-96 96 GENERAL: Awake, alert, and fully oriented, in no acute distress. HEAD: Normal with no signs of trauma. EYES: Pupils equal, round and reactive to light, extraocular movements intact, sclera anicteric, conjunctiva clear. No lid lag. EARS, NOSE, THROAT: Ears normal, nares patent, oropharynx clear without exudates. Moist mucous membranes. NECK: Normal range of motion, supple without lymphadenopathy, JVD, or masses. LUNGS: Bilateral lungs bases with crackles, no accessory muscle use, tolerating room air, no dyspnea on exam or on exertion HEART: Regular rate and rhythm, normal S1 and S2 without murmur, rub or gallop. ABDOMEN: Soft, nontender, not distended, normoactive bowel sounds, no guarding, no rebound, no masses. No hepatomegaly or splenomegaly. MUSCULOSKELETAL: Tenderness, +pain in left upper back 8th rib. UPPER EXTREMITIES: 2+ pulses, warm, well-perfused. No cyanosis. No clubbing. No peripheral edema. LOWER EXTREMITIES: 2+ pulses, warm, well-perfused. No calf tenderness. No peripheral edema. NEUROLOGICAL: Normal speech. Steady gait PSYCHIATRIC: Cooperative. Good eye contact. Appropriate mood and affect. SKIN: Warm, dry, normal turgor, no rashes or lesions noted, normal capillary refill. Laboratory Results - last 24 hr 08/16/16 08/16/16 08/16/16 07:00 09:25 13:00 WBC RBC Hgb Hct MCV MCHC RDW Plt Count MPV Neutrophils % Lymphocytes % Monocytes % Eosinophils % Basophils % Sodium Potassium Chloride Carbon Dioxide Anion Gap BUN Creatinine Creat Clearance w eGFR Random Glucose Calcium Total Bilirubin AST ALT Alkaline Phosphatase LD Total Creatine Kinase 274 Creatine Kinase Index 1.7 CK-MB (CK-2) 4.527 H CK-MB (CK-2) Rel Index Troponin I Cancelled 0.02 0.02 Total Protein Albumin Urine Color Urine Appearance Urine pH Urine Protein Urine Glucose (UA) Urine Ketones Urine Blood Urine Nitrite Urine Bilirubin Urine Urobilinogen Ur Leukocyte Esterase Urine RBC Urine WBC Ur Epithelial Cells Urine Bacteria Hyaline Casts Granular Casts Urine Mucus Urine Yeast U Random Total Protein Urine Creatinine Protein/Creatinin Ratio 08/16/16 08/16/16 08/16/16 13:00 22:44 22:44 WBC RBC Hgb Hct MCV MCHC RDW Plt Count MPV Neutrophils % Lymphocytes % Monocytes % Eosinophils % Basophils % Sodium Potassium Chloride Carbon Dioxide Anion Gap BUN Creatinine Creat Clearance w eGFR Random Glucose Calcium Total Bilirubin AST ALT Alkaline Phosphatase LD Total Creatine Kinase Creatine Kinase Index CK-MB (CK-2) CK-MB (CK-2) Rel Index Cancelled Troponin I Total Protein Albumin Urine Color Ltyellow Urine Appearance Slcloudy Urine pH 5.0 Urine Protein 3+ H Urine Glucose (UA) Negative Urine Ketones Negative Urine Blood 3+ H Urine Nitrite Negative Urine Bilirubin Negative Urine Urobilinogen Negative Ur Leukocyte Esterase Trace H Urine RBC 269 Urine WBC 42 Ur Epithelial Cells Rare Urine Bacteria Rare Hyaline Casts 3 Granular Casts 60 Urine Mucus Rare Urine Yeast Rare U Random Total Protein 315 H Urine Creatinine 124.0 Protein/Creatinin Ratio 0.39 08/17/16 08/17/16 05:35 05:35 WBC 10.6 H RBC 4.22 Hgb 11.9 Hct 35.5 MCV 84.0 MCHC 33.5 RDW 14.5 Plt Count 280 MPV 8.0 Neutrophils % 73.5 Lymphocytes % 11.4 D Monocytes % 8.6 Eosinophils % 6.0 H Basophils % 0.5 Sodium 139 Potassium 5.4 H D Chloride 105 Carbon Dioxide 26 Anion Gap 8 BUN 45 H Creatinine 3.2 H Creat Clearance w eGFR 20.84 Random Glucose 94 Calcium 7.6 L Total Bilirubin 0.3 D AST 30 ALT 28 Alkaline Phosphatase 118 H LD Total 250 H Creatine Kinase Creatine Kinase Index CK-MB (CK-2) CK-MB (CK-2) Rel Index Troponin I Total Protein 6.5 Albumin 2.6 L Urine Color Urine Appearance Urine pH Urine Protein Urine Glucose (UA) Urine Ketones Urine Blood Urine Nitrite Urine Bilirubin Urine Urobilinogen Ur Leukocyte Esterase Urine RBC Urine WBC Ur Epithelial Cells Urine Bacteria Hyaline Casts Granular Casts Urine Mucus Urine Yeast U Random Total Protein Urine Creatinine Protein/Creatinin Ratio Active Medications Generic Name Dose Route Start Last Admin Trade Name Freq PRN Reason Stop Dose Admin Acetaminophen 650 mg 08/16/16 14:28 08/17/16 10:02 Tylenol - PO 650 mg Q6H PRN Administration PAIN SCALE 6-10 Aspirin 81 mg 08/16/16 10:00 08/17/16 10:02 Ecotrin - PO 81 mg DAILY RATNA Administration Lidocaine 1 patch 08/16/16 15:15 08/17/16 10:02 Lidoderm Patch - TP 1 patch DAILY RATNA Administration Morphine Sulfate 2 mg 08/16/16 07:52 08/16/16 23:42 Morphine Injection - IVPUSH 2 mg Q4H PRN Administration PAIN Oxycodone HCl 10 mg 08/16/16 14:28 08/17/16 10:01 Roxicodone - PO 10 mg Q6H PRN Administration PAIN SCALE 6-10 ASSESSMENT/PLAN: Patient is a 50 year old man with a significant past medical history of anxiety , depression, bipolar, schizoaffective disorder and renal colic who presented to the ED with shortness of breath and palpitations after using crack/cocaine. He admits to apx 2-4 beers per day and use of crack cocaine. Patient was recently at [facility] on 08/11/2016 for similar symptoms but left AMA. He also reports a chronic cough and felt pain on his left upper back while coughing. Imaging: Chest CT 08/15/2016: (1) no evidence of pneumonia (2) bilateral pleural effusions with LL atelectatis (3) mediastinal lymphadenopathy of uncertain etiology (4) fracture left posterior eighth rib. Renal Ultrasound 08/16/2016: Possible left nephrolithiosis, no evidence of hydronephrosis. Possible non obstructive calculus of the left kidney. Cardiology/Pulmonary: Shortness of Breath/Palpitations - acute Assessment/Plan: Patient describes palpitations associated with shortness of breath with excessive coughing on admission Now shortness of breath has resolved, he is tolerating room air, no dyspnea reported on ambulation Denies chest pain on exam + pain on left flank area, pain persistent with any movement Troponins x 3 negative On ASA 81mg Echo ordered Serial EKGs ordered Cardiology following Renal: Acute Kidney Injury Assessment/Plan: Creatinine 3.1>3.2 Unclear etiology, but likely due to elevated BNP, heart failure and pulmonary congestion Renal consulted and following Trend BUN/Creat. Skeletal: Rib fracture seen on CT scan - acute vs. chronic Assessment/Plan: Monitor pain with Percocet and Lidoderm patch F.E.N. Fluids: tolerating PO Electrolytes: slight increase in serum potassium, trend. Nutrition: low sodium diet Prophylaxis: DVT: ambulatory patient GI: deferred for now Disposition: Patient currently needs inpatient observation. Full Code. Visit type - Emergency Visit Emergency Visit: Yes ED Registration Date: 08/16/16 Care time: The patient presented to the Emergency Department on the above date and was hospitalized for further evaluation of their emergent condition. - New Patient This patient is new to me today: No - Critical Care Critical Care patient: No - Discharge Referral Referred to [facility] Med P.C.: No
--- NOTE | 2016-08-17 12:23 | PN ---
Progress Note (short form) - Note Progress Note: RENAL essentially unchanged anxious Last Vital Signs Temp Pulse Resp BP Pulse Ox 97.7 F 71 20 140/86 96 08/17/16 05:54 08/17/16 05:54 08/17/16 05:54 08/17/16 05:54 08/16/16 21:00 HEENT has adenpathy on left neck and post occipital area lungs clear cvs s1s2 rr abd soft ext- no edema Current Medications Generic Name Dose Route Start Last Admin Trade Name Freq PRN Reason Stop Dose Admin Acetaminophen 650 mg 08/16/16 14:28 08/17/16 10:02 Tylenol - PO 650 mg Q6H PRN Administration PAIN SCALE 6-10 Aspirin 81 mg 08/16/16 10:00 08/17/16 10:02 Ecotrin - PO 81 mg DAILY RATNA Administration Lidocaine 1 patch 08/16/16 15:15 08/17/16 10:02 Lidoderm Patch - TP 1 patch DAILY RATNA Administration Morphine Sulfate 2 mg 08/16/16 07:52 08/16/16 23:42 Morphine Injection - IVPUSH 2 mg Q4H PRN Administration PAIN Oxycodone HCl 10 mg 08/16/16 14:28 08/17/16 10:01 Roxicodone - PO 10 mg Q6H PRN Administration PAIN SCALE 6-10 CBC, BMP 08/17/16 05:35 08/17/16 05:35 P/C reported as 0.39 but its actually 2.55 IMPRESSION -ARMIDA on CKD likely- may have lithium induced ckd which is why he no longer takes it. Also occasionally cocaine is associated with ckd -Bipolar illness -has a normal calcium when corrected for the hypoalbuminemia - albumin is only 2.5- malnutrition h/o substance abuse- may have some pulmonary disease from additives in cocaine - mediastinal adenopathy. As well as adenopathy in left cervical area -hypoalbuminemia suggests chronicity PLAN will likely need a biopsy of a node. L Cervical nodes are accessible anca renal sono reviewed would prefer not to diurese since he is relatively asymptomatic will need a psych and pulmonary eval ldh level slightly elevated will give kayexalate MV
[2016-08-17] MEDS ORDERED: SODIUM POLYSTYRENE SULFONATE 15 GM/60 ML BOTTLE PO ONE (12:30)
[2016-08-17] MEDS: morphine CARPU-JECT 2 MG/1 ML DISP.SYRIN IVPUSH PRN ×3 (13:55→22:13)
[2016-08-18] MEDS: morphine CARPU-JECT 2 MG/1 ML DISP.SYRIN IVPUSH PRN (02:54)
[2016-08-18 07:41] LABS: BASOPHIL 0.6 % (0-2.0); MCH 27.6 pg (25.7-33.7); MCHC 32.8 g/dl (32.0-35.9); MEAN CELL VOLUME 84.2 fl (80-96); MEAN PLT VOLUME 7.8 fl (7.5-11.1); PLATELET COUNT 279 K/MM3 (134-434); RDW 14.8 % (11.9-15.9); WHITE BLOOD COUNT 11.6 K/mm3 (4.0-10.0)
[2016-08-18] MEDS: oxyCODONE HCL 5 MG TABLET PO PRN ×3 (08:34→23:05)
[2016-08-18] MEDS: ACETAMINOPHEN 325 MG TABLET (FP) PO PRN ×3 (08:35→23:04)
--- NOTE | 2016-08-18 09:00 | EKG ---
Test Reason : Blood Pressure : / mmHG Vent. Rate : 079 BPM Atrial Rate : 079 BPM P-R Int : 154 ms QRS Dur : 088 ms QT Int : 428 ms P-R-T Axes : 014 044 174 degrees QTc Int : 490 ms NORMAL SINUS RHYTHM T WAVE ABNORMALITY, CONSIDER LATERAL ISCHEMIA PROLONGED QT ABNORMAL ECG WHEN COMPARED WITH ECG OF 16-AUG-2016 14:19, NO SIGNIFICANT CHANGE WAS FOUND Confirmed by EZRA BAEZA, RASHMI ([id number]) on 08/18/2016 8:59:51 AM Referred By: Bella RODRIGUEZ Confirmed By:RASHMI MUNGUIA MD
[2016-08-18 09:17] LABS: ALBUMIN 2.7 g/dl (3.4-5.0); CALCIUM 7.9 mg/dL (8.5-10.1); COCKROFT - GAULT 39.73; CREATININE 3.2 mg/dL (0.7-1.3); MAGNESIUM 2.1 mg/dL (1.8-2.4); PHOSPHOROUS 5.3 mg/dL (2.5-4.9)
[2016-08-18 09:19] LABS: BILIRUBIN,TOTAL 0.5 mg/dL (0.2-1.0); TOT PROT 6.8 g/dl (6.4-8.2)
[2016-08-18] MEDS ORDERED: SODIUM POLYSTYRENE SULFONATE 15 GM/60 ML BOTTLE PO ONE (10:20)
[2016-08-18] MEDS: LIDOCAINE 5% TOPICAL PATCH TP SCH (10:21)
[2016-08-18] MEDS: ASPIRIN COATED 81 MG TABLET.EC PO SCH (10:21)
--- NOTE | 2016-08-18 10:46 | PN ---
Progress Note, Physician History of Present Illness: Pt seen and examined at bedside. He is awake and alert. He appears anxious. - Current Medication List Current Medications: Active Medications Acetaminophen (Tylenol -) 650 mg PO Q6H PRN PRN Reason: PAIN SCALE 6-10 Last Admin: 08/18/16 08:35 Dose: 650 mg Aspirin (Ecotrin -) 81 mg PO DAILY [facility] Last Admin: 08/18/16 10:21 Dose: 81 mg Lidocaine (Lidoderm Patch -) 1 patch TP DAILY [facility] Last Admin: 08/18/16 10:21 Dose: 1 patch Morphine Sulfate (Morphine Injection -) 2 mg IVPUSH Q4H PRN PRN Reason: PAIN Last Admin: 08/18/16 02:54 Dose: 2 mg Oxycodone HCl (Roxicodone -) 10 mg PO Q6H PRN PRN Reason: PAIN SCALE 6-10 Last Admin: 08/18/16 08:34 Dose: 10 mg - Objective Vital Signs: Vital Signs Temperature 98.2 F 08/18/16 10:00 Pulse Rate 96 H 08/18/16 10:00 Respiratory Rate 18 08/18/16 10:00 Blood Pressure 145/87 08/18/16 10:00 O2 Sat by Pulse Oximetry (%) 95 08/17/16 20:25 Constitutional: Yes: Anxious Eyes: Yes: Conjunctiva Clear HENT: Yes: Atraumatic Cardiovascular: Yes: S1, S2 Respiratory: Yes: CTA Bilaterally Gastrointestinal: Yes: Soft Genitourinary: Yes: WNL Musculoskeletal: Yes: WNL Edema: No Neurological: Yes: Oriented Psychiatric: Yes: Oriented Labs: CBC, BMP 08/18/16 05:35 08/18/16 05:35 INR, PTT INR 1.05 (0.82-1.09) 08/15/16 22:33 Problem List - Problems (1) Cocaine dependence Code(s): F14.20 - COCAINE DEPENDENCE, UNCOMPLICATED Qualifiers: Substance use status: in remission Qualified Code(s): F14.21 - Cocaine dependence, in remission (2) CKD (chronic kidney disease) Code(s): N18.9 - CHRONIC KIDNEY DISEASE, UNSPECIFIED (3) Proteinuria Code(s): R80.9 - PROTEINURIA, UNSPECIFIED Assessment/Plan Current Medications Generic Name Dose Route Start Last Admin Trade Name Freq PRN Reason Stop Dose Admin Acetaminophen 650 mg 05/06/17 14:28 08/18/16 08:35 Tylenol - PO 650 mg Q6H PRN Administration PAIN SCALE 6-10 Aspirin 81 mg 08/16/16 10:00 08/18/16 10:21 Ecotrin - PO 81 mg DAILY RATNA Administration Lidocaine 1 patch 08/16/16 15:15 08/18/16 10:21 Lidoderm Patch - TP 1 patch DAILY RATNA Administration Morphine Sulfate 2 mg 08/16/16 07:52 08/18/16 02:54 Morphine Injection - IVPUSH 2 mg Q4H PRN Administration PAIN Oxycodone HCl 10 mg 08/16/16 14:28 08/18/16 08:34 Roxicodone - PO 10 mg Q6H PRN Administration PAIN SCALE 6-10 Laboratory Tests 08/16/16 08/16/16 08/17/16 22:44 22:44 05:35 Urine Protein 3+ H U Random Total Protein 315 H Urine Creatinine 124.0 WESLY Screen Pending c-ANCA Pending Proteinase 3 (PR3) Pending p-ANCA Pending Atypical p-ANCA Pending Myeloperoxidase Ab Pending Hep Bs Antigen Pending Hep B Core IgM Ab Pending Hepatitis C Ab (EIA) Pending Laboratory Tests 08/18/16 05:35 Phosphorus 5.3 H Impression 1. CKD 2. proteinuria 3. Bipolar 4. substance abuse - cocaine 5. mediastinal adenopathy 6. hyperkalemia Plan - renal workup is in progress - start low potassium renal diet - repeat dose of kayexylate as potassium is rising - start renal diet - start phoslo with meals - renal ultrasound reviewed, possible nephrolithiasis
--- NOTE | 2016-08-18 11:08 | PN ---
Progress Note, Physician Chief Complaint: chf History of Present Illness: no sob walking in halls no orthopnea no cp, palpit no leg swelling - Current Medication List Current Medications: Active Medications Acetaminophen (Tylenol -) 650 mg PO Q6H PRN PRN Reason: PAIN SCALE 6-10 Last Admin: 08/18/16 08:35 Dose: 650 mg Aspirin (Ecotrin -) 81 mg PO DAILY [facility] Last Admin: 08/18/16 10:21 Dose: 81 mg Calcium Acetate (Phoslo -) 667 mg PO TIDCM [facility] Dextrose (D5w -) 1,000 mls @ 42 mls/hr IV ASDIR RATNA Lidocaine (Lidoderm Patch -) 1 patch TP DAILY [facility] Last Admin: 08/18/16 10:21 Dose: 1 patch Morphine Sulfate (Morphine Injection -) 2 mg IVPUSH Q4H PRN PRN Reason: PAIN Last Admin: 08/18/16 02:54 Dose: 2 mg Oxycodone HCl (Roxicodone -) 10 mg PO Q6H PRN PRN Reason: PAIN SCALE 6-10 Last Admin: 08/18/16 08:34 Dose: 10 mg - Objective Vital Signs: Vital Signs Temperature 98.2 F 08/18/16 10:00 Pulse Rate 96 H 08/18/16 10:00 Respiratory Rate 18 08/18/16 10:00 Blood Pressure 145/87 08/18/16 10:00 O2 Sat by Pulse Oximetry (%) 95 08/17/16 20:25 Constitutional: Yes: Well Nourished, No Distress, Calm Cardiovascular: Yes: Regular Rate and Rhythm, S1, S2. No: Gallop, Murmur Respiratory: Yes: Regular, CTA Bilaterally. No: Accessory Muscle Use, Rales, Wheezes Extremities: No: Cold Edema: No Neurological: Yes: Alert, Oriented Psychiatric: No: Agitated Labs: CBC, BMP 08/18/16 05:35 08/18/16 05:35 INR, PTT INR 1.05 (0.82-1.09) 08/15/16 22:33 - ....Imaging EKG: Other (tele: NSR) Assessment/Plan ECG 08/16 with acute changes here vs 04/28: NSR, prolonged QT, lateral lead TWIs ( no ST segment shifts) ECG 08/17: NSR, QT shortened (<500 msec now), o/w no change vs prior Renal sono: ? L stone; no hydro or acute pathology acute CHF (NOS): -bnp 6K, from 200 in 04/28 (though new renal dysfunction present) -pulmonary edema and effusions/fluid in fissures on CXR and CT scan -recent sob sx's at home, new for him, likely due to pulm congestion already at that time -no sx's here -echo pending today (r/o drug-induced or etoh LV syst dysfunction, abnormal ekg noted) -given no active sob sx's at rest, and oxygenating well, will defer lasix for now, as per renal rec.s sob, palpitations/cocaine abuse: -likely sec to acute crack cocaine intoxication, these specific sx's now resolved -new TWIs on ECG, trop neg x 4 -f/u echo for LV fxn -given no s/sx of active ischemia here, prefer to defer stress testing in setting of recent cocaine intoxication--if remains asymptomatic, will defer stress echo to outpatient -dangers (incl CV ) of cocaine use reviewed, and complete abstinence rec'd -no BB (acute cocaine--risk of vasospasm) -no ASA, statin unless clinical findings of myocardial ischemia present themselves -tele monitoring WNL x 48-72 hrs now (including in ER), pt without ongoing CV sx 's--no need for continued monitoring ARMIDA: -renal fxn worsening slightly -plan per renal team LFT abnormalities: -per hospitalist
[2016-08-18] MEDS: DEXTROSE 5%-WATER - 1,000 ML IV SCH (11:42)
[2016-08-18] MEDS: CALCIUM ACETATE 667 MG CAPSULE (FP) PO SCH ×2 (12:42→17:59)
[2016-08-18] MEDS ORDERED: morphine CARPU-JECT 2 MG/1 ML DISP.SYRIN IVPUSH ONE (18:18)
--- NOTE | 2016-08-18 19:29 | PN ---
Physical Exam: SUBJECTIVE: Patient seen and examined. Patient denies chest pain or shortness of breath. OBJECTIVE: Vital Signs Period Temp Pulse Resp BP Sys/Easley Pulse Ox Last 24 Hr 97 F-98.9 F 84-96 18-20 142-160/87-96 95-95 GENERAL: Awake, alert, and fully oriented, in no acute distress. HEAD: Normal with no signs of trauma. EYES: Pupils equal, round and reactive to light, extraocular movements intact, sclera anicteric, conjunctiva clear. No lid lag. EARS, NOSE, THROAT: Ears normal, nares patent, oropharynx clear without exudates. Moist mucous membranes. NECK: Normal range of motion, supple without lymphadenopathy, JVD, or masses. LUNGS: Bilateral lungs bases with crackles, no accessory muscle use, tolerating room air, no dyspnea on exam or on exertion HEART: Regular rate and rhythm, normal S1 and S2 without murmur, rub or gallop. ABDOMEN: Soft, nontender, not distended, normoactive bowel sounds, no guarding, no rebound, no masses. No hepatomegaly or splenomegaly. MUSCULOSKELETAL: Tenderness, +pain in left upper back 8th rib. UPPER EXTREMITIES: 2+ pulses, warm, well-perfused. No cyanosis. No clubbing. No peripheral edema. LOWER EXTREMITIES: 2+ pulses, warm, well-perfused. No calf tenderness. No peripheral edema. NEUROLOGICAL: Normal speech. Steady gait PSYCHIATRIC: Cooperative. Good eye contact. Appropriate mood and affect. SKIN: Warm, dry, normal turgor, no rashes or lesions noted, normal capillary refill. Laboratory Results - last 24 hr 08/18/16 08/18/16 08/18/16 05:35 05:35 11:50 WBC 11.6 H RBC 4.27 Hgb 11.8 Hct 36.0 MCV 84.2 MCHC 32.8 RDW 14.8 Plt Count 279 MPV 7.8 Neutrophils % 77.0 Lymphocytes % 9.0 D Monocytes % 8.4 Eosinophils % 5.0 H Basophils % 0.6 Sodium 140 Potassium 5.7 H 4.6 Chloride 107 Carbon Dioxide 26 Anion Gap 7 L BUN 42 H Creatinine 3.2 H Creat Clearance w eGFR 20.84 Random Glucose 75 D Calcium 7.9 L Phosphorus 5.3 H Magnesium 2.1 Total Bilirubin 0.5 D AST 35 ALT 32 Alkaline Phosphatase 126 H Total Protein 6.8 Albumin 2.7 L Active Medications Generic Name Dose Route Start Last Admin Trade Name Betoq PRN Reason Stop Dose Admin Acetaminophen 650 mg 08/16/16 14:28 08/18/16 14:07 Tylenol - PO 650 mg Q6H PRN Administration PAIN SCALE 6-10 Aspirin 81 mg 08/16/16 10:00 08/18/16 10:21 Ecotrin - PO 81 mg DAILY RATNA Administration Calcium Acetate 667 mg 08/18/16 12:00 08/18/16 17:59 Phoslo - PO 667 mg TIDCM RATNA Administration Dextrose 1,000 mls @ 42 mls/hr 08/18/16 11:00 08/18/16 11:42 D5w - IV 42 mls/hr ASDIR RATNA Administration Lidocaine 1 patch 08/16/16 15:15 08/18/16 10:21 Lidoderm Patch - TP 1 patch DAILY [facility]NA Administration Oxycodone HCl 10 mg 08/16/16 14:28 08/18/16 14:02 Roxicodone - PO 10 mg Q6H PRN Administration PAIN SCALE 6-10 ASSESSMENT/PLAN: Patient is a 50 year old man with a significant past medical history of anxiety , depression, bipolar, schizoaffective disorder and renal colic who presented to the ED with shortness of breath and palpitations after using crack/cocaine. He admits to apx 2-4 beers per day and use of crack cocaine. Patient was recently at [facility] on 08/11/2016 for similar symptoms but left AMA. He also reports a chronic cough and felt pain on his left upper back while coughing. Imaging: Chest CT 08/15/2016: (1) no evidence of pneumonia (2) bilateral pleural effusions with LL atelectatis (3) mediastinal lymphadenopathy of uncertain etiology (4) fracture left posterior eighth rib. Renal Ultrasound 08/16/2016: Possible left nephrolithiosis, no evidence of hydronephrosis. Possible non obstructive calculus of the left kidney. Cardiology/Pulmonary: Shortness of Breath/Palpitations - resolved Assessment/Plan: Patient describes palpitations associated with shortness of breath with excessive coughing on admission Now shortness of breath has resolved, he is tolerating room air, no dyspnea reported on ambulation Denies chest pain on exam + pain on left flank area, pain persistent with any movement Troponins x 4 negative On ASA 81mg Cardiology following Renal: Acute Kidney Injury Assessment/Plan: Creatinine 3.1>3.2 Unclear etiology, but likely due to elevated BNP, heart failure and pulmonary congestion Renal consulted and following, started on a renal diet Given IVF by renal, Trend BUN/Creat. Skeletal: Rib fracture seen on CT scan - acute vs. chronic Assessment/Plan: Monitor pain with Percocet and Lidoderm patch Discussed with patient the need for a possible lymph node biopsy, patient is in agreement. He has a new PCP Dr. Lynnette Beckham that he wants to follow up with on d/c. F.E.N. Fluids: D5 @ 42cc/hr Electrolytes: slight increase in serum potassium, given Kayexalate 30mg x1, K now stable Nutrition: low sodium diet/renal/low K diet Prophylaxis: DVT: ambulatory patient GI: deferred for now Disposition: Full Code. Visit type - Emergency Visit Emergency Visit: Yes ED Registration Date: 08/16/16 Care time: The patient presented to the Emergency Department on the above date and was hospitalized for further evaluation of their emergent condition. - New Patient This patient is new to me today: No - Critical Care Critical Care patient: No - Discharge Referral Referred to [facility] No
[2016-08-19 07:52] LABS: BASOPHIL 0.4 % (0-2.0); EOSINOPHIL 2.8 % (0-4.5); MCH 27.4 pg (25.7-33.7); MCHC 32.8 g/dl (32.0-35.9); MEAN CELL VOLUME 83.7 fl (80-96); MEAN PLT VOLUME 7.7 fl (7.5-11.1); NEUTROPHILS 84.7 % (42.8-82.8); PLATELET COUNT 267 K/MM3 (134-434); RDW 14.6 % (11.9-15.9); WHITE BLOOD COUNT 14.8 K/mm3 (4.0-10.0)
[2016-08-19 08:17] LABS: ALBUMIN 2.6 g/dl (3.4-5.0); COCKROFT - GAULT 41.31; CREATININE 3.1 mg/dL (0.7-1.3)
[2016-08-19 08:19] LABS: BILIRUBIN,TOTAL 0.6 mg/dL (0.2-1.0); TOT PROT 6.7 g/dl (6.4-8.2)
[2016-08-19] MEDS: ACETAMINOPHEN 325 MG TABLET (FP) PO PRN ×2 (08:21→18:19)
[2016-08-19] MEDS: oxyCODONE HCL 5 MG TABLET PO PRN (08:23)
[2016-08-19] MEDS: CALCIUM ACETATE 667 MG CAPSULE (FP) PO SCH ×3 (08:23→18:12)
[2016-08-19] MEDS ORDERED: PT OWN MED DRAWER 7, Y5N ONE (09:44)
[2016-08-19] MEDS: ASPIRIN COATED 81 MG TABLET.EC PO SCH (09:55)
[2016-08-19] MEDS: LIDOCAINE 5% TOPICAL PATCH TP SCH (09:55)
[2016-08-19] MEDS ORDERED: morphine CARPU-JECT 2 MG/1 ML DISP.SYRIN IVPUSH PRN (10:28)
--- NOTE | 2016-08-19 10:55 | PN ---
Physical Exam: SUBJECTIVE: Patient seen and examinedl States he feels that his urine is pink tinged. Denies chills or general malaise. Ambulating up and down pod. Tolerating room air. OBJECTIVE: WBC trending up but is afebrile Blood cultures ordered States he is having "blood in the urine" UA and UC ordered - will follow Pt to get outpatient workup of kidney biopsy and possible lymph node biopsy Vital Signs Period Temp Pulse Resp BP Sys/Easley Pulse Ox Last 24 Hr 97.7 F-98.9 F 90-96 20-20 146-168/89-98 96 GENERAL: Awake, alert, and fully oriented, in no acute distress. HEAD: Normal with no signs of trauma. EYES: Pupils equal, round and reactive to light, extraocular movements intact, sclera anicteric, conjunctiva clear. No lid lag. EARS, NOSE, THROAT: Ears normal, nares patent, oropharynx clear without exudates. Moist mucous membranes. NECK: Normal range of motion, supple without lymphadenopathy, JVD, or masses. LUNGS: Bilateral lungs bases with crackles, no accessory muscle use, tolerating room air, no dyspnea on exam or on exertion HEART: Regular rate and rhythm, normal S1 and S2 without murmur, rub or gallop. ABDOMEN: Soft, nontender, not distended, normoactive bowel sounds, no guarding, no rebound, no masses. No hepatomegaly or splenomegaly. MUSCULOSKELETAL: Tenderness, +pain in left upper back 8th rib. UPPER EXTREMITIES: 2+ pulses, warm, well-perfused. No cyanosis. No clubbing. No peripheral edema. LOWER EXTREMITIES: 2+ pulses, warm, well-perfused. No calf tenderness. No peripheral edema. NEUROLOGICAL: Normal speech. Steady gait PSYCHIATRIC: Cooperative. Good eye contact. Appropriate mood and affect. SKIN: Warm, dry, normal turgor, no rashes or lesions noted, normal capillary refill. Laboratory Results - last 24 hr 08/17/16 08/18/16 08/19/16 05:35 11:50 06:30 WBC RBC Hgb Hct MCV MCHC RDW Plt Count MPV Neutrophils % Lymphocytes % Monocytes % Eosinophils % Basophils % Sodium 140 Potassium 4.6 4.8 Chloride 104 Carbon Dioxide 23 Anion Gap 13 BUN 36 H Creatinine 3.1 H Creat Clearance w eGFR 21.61 Random Glucose 82 Calcium 8.0 L Total Bilirubin 0.6 AST 39 H ALT 34 Alkaline Phosphatase 120 H Total Protein 6.7 Albumin 2.6 L WESLY Screen Negative Hepatitis A IgM Ab Negative Hep Bs Antigen Negative Hep B Core IgM Ab Negative Hepatitis C Ab (EIA) <0.1 08/19/16 06:30 WBC 14.8 H RBC 4.27 Hgb 11.7 Hct 35.7 MCV 83.7 MCHC 32.8 RDW 14.6 Plt Count 267 MPV 7.7 Neutrophils % 84.7 H Lymphocytes % 6.0 L D Monocytes % 6.1 Eosinophils % 2.8 Basophils % 0.4 Sodium Potassium Chloride Carbon Dioxide Anion Gap BUN Creatinine Creat Clearance w eGFR Random Glucose Calcium Total Bilirubin AST ALT Alkaline Phosphatase Total Protein Albumin WESLY Screen Hepatitis A IgM Ab Hep Bs Antigen Hep B Core IgM Ab Hepatitis C Ab (EIA) Active Medications Generic Name Dose Route Start Last Admin Trade Name Freq PRN Reason Stop Dose Admin Acetaminophen 650 mg 08/16/16 14:28 08/19/16 08:21 Tylenol - PO 650 mg Q6H PRN Administration PAIN SCALE 6-10 Aspirin 81 mg 08/16/16 10:00 08/19/16 09:55 Ecotrin - PO 81 mg DAILY RATNA Administration Calcium Acetate 667 mg 08/18/16 12:00 08/19/16 08:23 Phoslo - PO 667 mg TIDCM RATNA Administration Dextrose 1,000 mls @ 42 mls/hr 08/18/16 11:00 08/18/16 11:42 D5w - IV 42 mls/hr ASDIR RATNA Administration Lidocaine 1 patch 08/16/16 15:15 08/19/16 09:55 Lidoderm Patch - TP 1 patch DAILY RATNA Administration Morphine Sulfate 1 mg 08/19/16 10:28 Morphine Injection - IVPUSH Q4H PRN PAIN Oxycodone HCl 10 mg 08/16/16 14:28 08/19/16 08:23 Roxicodone - PO 10 mg Q6H PRN Administration PAIN SCALE 6-10 ASSESSMENT/PLAN: Patient is a 50 year old man with a significant past medical history of anxiety , depression, bipolar, schizoaffective disorder and renal colic who presented to the ED with shortness of breath and palpitations after using crack/cocaine. He admits to apx 2-4 beers per day and use of crack cocaine. Patient was recently at [facility] on 08/11/2016 for similar symptoms but left AMA. He also reports a chronic cough and felt pain on his left upper back while coughing. Imaging: Chest CT 08/15/2016: (1) no evidence of pneumonia (2) bilateral pleural effusions with LL atelectatis (3) mediastinal lymphadenopathy of uncertain etiology (4) fracture left posterior eighth rib. Renal Ultrasound 08/16/2016: Possible left nephrolithiosis, no evidence of hydronephrosis. Possible non obstructive calculus of the left kidney. Cardiology/Pulmonary: Shortness of Breath/Palpitations - resolved Assessment/Plan: Patient describes palpitations associated with shortness of breath with excessive coughing on admission Now shortness of breath has resolved, he is tolerating room air, no dyspnea reported on ambulation Denies chest pain on exam Troponins x 4 negative On ASA 81mg Cardiology following Renal: Acute Kidney Injury - stable, to follow outpatient Assessment/Plan: Creatinine 3.1 Follow up next Thursday with Dr. You Skeletal: Rib fracture seen on CT scan - acute vs. chronic Assessment/Plan: Monitor pain with Percocet and Lidoderm patch Discussed with patient the need for a possible lymph node biopsy, patient is in agreement. He has a new PCP Dr. Lynnette Beckham that he wants to follow up with on d/c. Disposition: Full Code. Visit type - Emergency Visit Emergency Visit: Yes ED Registration Date: 08/16/16 Care time: The patient presented to the Emergency Department on the above date and was hospitalized for further evaluation of their emergent condition. - New Patient This patient is new to me today: No - Critical Care Critical Care patient: No - Discharge Referral Referred to [facility] No
[2016-08-19 12:26] LABS: URINE APPEARANCE CLEAR; URINE BILIRUBIN NEGATIVE (NEGATIVE); URINE COLOR RED; URINE GLUCOSE (UA) NEGATIVE (NEGATIVE); URINE KETONE NEGATIVE (NEGATIVE); URINE NITRITE NEGATIVE (NEGATIVE); URINE UROBILINOGEN NEGATIVE E.U./dl (0.2-1.0)
[2016-08-19 12:29] LABS: URINE BLOOD 3+ (NEGATIVE); URINE LEUK ESTERASE TRACE (NEGATIVE); URINE PROTEIN 3+ (NEGATIVE)
[2016-08-19 12:41] LABS: URINE BACTERIA RARE /hpf (NONE SEEN); URINE MUCUS RARE; URINE WBC 34 /hpf (3-5)
[2016-08-19 12:49] LABS: URINE RBC 195 /hpf (0-3)
--- NOTE | 2016-08-19 13:48 | DS ---
Physical Exam: SUBJECTIVE: Patient seen and examined He denies any shortness of breath. OBJECTIVE: WBC trending up but is afebrile Blood cultures ordered States he is having "blood in the urine" UA and UC ordered - will follow Pt to get outpatient workup of kidney biopsy and possible lymph node biopsy Vital Signs Period Temp Pulse Resp BP Sys/Easley Pulse Ox Last 24 Hr 97.7 F-98.9 F 90-96 20-24 146-168/89-100 96 PHYSICAL EXAM GGENERAL: Awake, alert, and fully oriented, in no acute distress. HEAD: Normal with no signs of trauma. EYES: Pupils equal, round and reactive to light, extraocular movements intact, sclera anicteric, conjunctiva clear. No lid lag. EARS, NOSE, THROAT: Ears normal, nares patent, oropharynx clear without exudates. Moist mucous membranes. NECK: Normal range of motion, supple without lymphadenopathy, JVD, or masses. LUNGS: Bilateral lungs bases with crackles, no accessory muscle use, tolerating room air, no dyspnea on exam or on exertion HEART: Regular rate and rhythm, normal S1 and S2 without murmur, rub or gallop. ABDOMEN: Soft, nontender, not distended, normoactive bowel sounds, no guarding, no rebound, no masses. No hepatomegaly or splenomegaly. MUSCULOSKELETAL: Tenderness, +pain in left upper back 8th rib. UPPER EXTREMITIES: 2+ pulses, warm, well-perfused. No cyanosis. No clubbing. No peripheral edema. LOWER EXTREMITIES: 2+ pulses, warm, well-perfused. No calf tenderness. No peripheral edema. NEUROLOGICAL: Normal speech. Steady gait PSYCHIATRIC: Cooperative. Good eye contact. Appropriate mood and affect. SKIN: Warm, dry, normal turgor, no rashes or lesions noted, normal capillary refill. LABS Laboratory Results - last 24 hr 08/17/16 08/19/16 08/19/16 05:35 06:30 06:30 WBC 14.8 H RBC 4.27 Hgb 11.7 Hct 35.7 MCV 83.7 MCHC 32.8 RDW 14.6 Plt Count 267 MPV 7.7 Neutrophils % 84.7 H Lymphocytes % 6.0 L D Monocytes % 6.1 Eosinophils % 2.8 Basophils % 0.4 Sodium 140 Potassium 4.8 Chloride 104 Carbon Dioxide 23 Anion Gap 13 BUN 36 H Creatinine 3.1 H Creat Clearance w eGFR 21.61 Random Glucose 82 Calcium 8.0 L Total Bilirubin 0.6 AST 39 H ALT 34 Alkaline Phosphatase 120 H Total Protein 6.7 Albumin 2.6 L Urine Color Urine Appearance Urine pH Urine Protein Urine Glucose (UA) Urine Ketones Urine Blood Urine Nitrite Urine Bilirubin Urine Urobilinogen Ur Leukocyte Esterase Urine RBC Urine WBC Urine Bacteria Urine Mucus WESLY Screen Negative Hepatitis A IgM Ab Negative Hep Bs Antigen Negative Hep B Core IgM Ab Negative Hepatitis C Ab (EIA) <0.1 08/19/16 11:45 WBC RBC Hgb Hct MCV MCHC RDW Plt Count MPV Neutrophils % Lymphocytes % Monocytes % Eosinophils % Basophils % Sodium Potassium Chloride Carbon Dioxide Anion Gap BUN Creatinine Creat Clearance w eGFR Random Glucose Calcium Total Bilirubin AST ALT Alkaline Phosphatase Total Protein Albumin Urine Color Red Urine Appearance Clear Urine pH 6.0 Urine Protein 3+ H Urine Glucose (UA) Negative Urine Ketones Negative Urine Blood 3+ H Urine Nitrite Negative Urine Bilirubin Negative Urine Urobilinogen Negative Ur Leukocyte Esterase Trace H Urine RBC 195 Urine WBC 34 Urine Bacteria Rare Urine Mucus Rare WESLY Screen Hepatitis A IgM Ab Hep Bs Antigen Hep B Core IgM Ab Hepatitis C Ab (EIA) HOSPITAL COURSE: Date of Admission:08/16/16 Date of Discharge: 08/19/16 ASSESSMENT/PLAN: Patient is a 50 year old man with a significant past medical history of anxiety , depression, bipolar, schizoaffective disorder and renal colic who presented to the ED with shortness of breath and palpitations after using crack/cocaine. He admits to apx 2-4 beers per day and use of crack cocaine. Patient was recently at [facility] on 08/11/2016 for similar symptoms but left AMA. He also reports a chronic cough and felt pain on his left upper back while coughing. Imaging: Chest CT 08/15/2016: (1) no evidence of pneumonia (2) bilateral pleural effusions with LL atelectatis (3) mediastinal lymphadenopathy of uncertain etiology (4) fracture left posterior eighth rib. Renal Ultrasound 08/16/2016: Possible left nephrolithiosis, no evidence of hydronephrosis. Possible non obstructive calculus of the left kidney. Cardiology/Pulmonary: Shortness of Breath/Palpitations - resolved Assessment/Plan: Patient describes palpitations associated with shortness of breath with excessive coughing on admission BNP elevated @ 6074, pulmonary edema and effusions seen on ct scan and chest xray echo shows mild pulmonary hypertension, grade 1 diastolic dysfunction (abnormal relaxation pattern) Recent shortness of breath symptoms at home, remains asymptomatic here As per cardiology, defer Lasix for now secondary to ARMIDA, acute chf likely drug induced Pt denies chest pain on exam Troponins negative On ASA 81mg Cardiology following Renal: Acute Kidney Injury - stable, to follow outpatient Assessment/Plan: Creatinine 3.1 Follow up next Thursday with Dr. You Skeletal: Rib fracture seen on CT scan - acute vs. chronic Assessment/Plan: Monitor pain with Percocet and Lidoderm patch Discussed with patient the need for a possible lymph node biopsy, patient is in agreement. He has a new PCP Dr. Lynnette Beckham that he wants to follow up with on d/c. Disposition: Full Code. Minutes to complete discharge: 45 Discharge Summary Reason For Visit: ACUTE CORONARY SYNDROME RENAL FAILURE Current Active Problems Acute coronary syndrome (Acute) Acute renal failure (Acute) CKD (chronic kidney disease) (Acute) Proteinuria (Acute) Condition: Improved - Instructions Diet, Activity, Other Instructions: Mr. Arnold: You will likely need a lymph node biopsy. Please take the Cat Scan report to your physician, Dr. Lynnette Beckham. You will also need to follow up with Dr. You within one week after discharge for possible kidney biopsy and continued follow up on your kidney function. Continue renal diet. continue medications as prescribed. Disposition: HOME - Home Medications Comprehensive Discharge Medication List: Ambulatory Orders Aspirin Coated [Ecotrin -] 81 mg PO DAILY #30 tab 08/19/16 Calcium Acetate [Phoslo -] 667 mg PO TIDCM #30 tab 08/19/16 This patient is new to me today: Yes Date on this admission: 08/31/16 Emergency Visit: Yes ED Registration Date: 08/16/16 Care time: The patient presented to the Emergency Department on the above date and was hospitalized for further evaluation of their emergent condition. Critical Care patient: No - Discharge Referral Referred to [facility] No
--- NOTE | 2016-08-19 15:10 | PN ---
Progress Note, Physician History of Present Illness: Pt seen and examined at bedside. He is awake and alert. He does have extensive history of NSAID use. - Current Medication List Current Medications: Active Medications Acetaminophen (Tylenol -) 650 mg PO Q6H PRN PRN Reason: PAIN SCALE 6-10 Last Admin: 08/19/16 08:21 Dose: 650 mg Aspirin (Ecotrin -) 81 mg PO DAILY [facility] Last Admin: 08/19/16 09:55 Dose: 81 mg Calcium Acetate (Phoslo -) 667 mg PO TIDCM [facility] Last Admin: 08/19/16 11:59 Dose: 667 mg Dextrose (D5w -) 1,000 mls @ 42 mls/hr IV ASDIR [facility] Last Admin: 08/18/16 11:42 Dose: 42 mls/hr Lidocaine (Lidoderm Patch -) 1 patch TP DAILY [facility] Last Admin: 08/19/16 09:55 Dose: 1 patch Morphine Sulfate (Morphine Injection -) 1 mg IVPUSH Q4H PRN PRN Reason: PAIN Last Admin: 08/19/16 11:59 Dose: 1 mg - Objective Vital Signs: Vital Signs Temperature 98.8 F 08/19/16 08:50 Pulse Rate 91 H 08/19/16 08:50 Respiratory Rate 24 08/19/16 08:50 Blood Pressure 149/100 08/19/16 08:50 O2 Sat by Pulse Oximetry (%) 96 08/18/16 21:00 Constitutional: Yes: Calm Eyes: Yes: Conjunctiva Clear HENT: Yes: Atraumatic Neck: Yes: Supple Cardiovascular: Yes: S1, S2 Respiratory: Yes: CTA Bilaterally Gastrointestinal: Yes: Normal Bowel Sounds, Soft Genitourinary: Yes: WNL Musculoskeletal: Yes: WNL Edema: No Neurological: Yes: Oriented Psychiatric: Yes: Oriented Labs: CBC, BMP 08/19/16 06:30 08/19/16 06:30 INR, PTT INR 1.05 (0.82-1.09) 08/15/16 22:33 Problem List - Problems (1) Cocaine dependence Code(s): F14.20 - COCAINE DEPENDENCE, UNCOMPLICATED Qualifiers: Substance use status: in remission Qualified Code(s): F14.21 - Cocaine dependence, in remission (2) CKD (chronic kidney disease) Code(s): N18.9 - CHRONIC KIDNEY DISEASE, UNSPECIFIED (3) Proteinuria Code(s): R80.9 - PROTEINURIA, UNSPECIFIED Assessment/Plan Current Medications Generic Name Dose Route Start Last Admin Trade Name Ana Laura PRN Reason Stop Dose Admin Acetaminophen 650 mg 08/16/16 14:28 08/19/16 08:21 Tylenol - PO 650 mg Q6H PRN Administration PAIN SCALE 6-10 Aspirin 81 mg 08/16/16 10:00 08/19/16 09:55 Ecotrin - PO 81 mg DAILY RATNA Administration Calcium Acetate 667 mg 08/18/16 12:00 08/19/16 11:59 Phoslo - PO 667 mg TIDCM RATNA Administration Dextrose 1,000 mls @ 42 mls/hr 08/18/16 11:00 08/18/16 11:42 D5w - IV 42 mls/hr ASDIR RATNA Administration Lidocaine 1 patch 08/16/16 15:15 08/19/16 09:55 Lidoderm Patch - TP 1 patch DAILY RATNA Administration Morphine Sulfate 1 mg 08/19/16 10:28 08/19/16 11:59 Morphine Injection - IVPUSH 1 mg Q4H PRN Administration PAIN Impression 1. CKD 2. proteinuria 3. Bipolar 4. substance abuse - cocaine 5. mediastinal adenopathy 6. hyperkalemia Plan - potassium is improved - explained to pt at length to avoid nsaid use - pt should follow with me in the office to complete renal workup and possibly schedule a biopsy - potassium is improved - discussed with medical team - cont renal diet - cont phoslo Dr You
[2016-08-19] MEDS: DEXTROSE 5%-WATER - 1,000 ML IV SCH (16:24)
[2016-08-19 17:13] VITALS: BP 147/103; PULSE 88; TEMP 98.4
[2016-08-19] MEDS ORDERED: oxyCODONE HCL 5 MG TABLET PO ONE (18:11)
[2016-08-21 00:07] LABS: C-ANCA <1:20 titer (Neg:<1:20); MYELOPEROXIDASE ANTIBODY <9.0 U/mL (0.0-9.0); PROTEINASE-3 ANTIBODY <3.5 U/mL (0.0-3.5)
== END 2016-08-19 19:06 | disposition home or self-care (01) | DRG 682 ==
LOC: JER 21:02 → JERBED 08-16 01:48 → J4W 08-16 03:19 → J8W 08-18 16:20
PROVIDERS: ADMIT Internal Medicine; ATTEND Nurse Practitioner Family
DX: N17.9 Acute kidney failure, unspecified (principal); I50.31 Acute diastolic (congestive) heart failure; F14.20 Cocaine dependence, uncomplicated; I13.0 Hypertensive heart and chronic kidney disease with heart failure and stage 1 through stage 4 chronic kidney disease, or unspecified chronic kidney disease; J98.11 Atelectasis; M84.48XA Pathological fracture, other site, initial encounter for fracture; F31.9 Bipolar disorder, unspecified; F25.9 Schizoaffective disorder, unspecified; F17.200 Nicotine dependence, unspecified, uncomplicated; R00.2 Palpitations; Z87.442 Personal history of urinary calculi; I25.10 Atherosclerotic heart disease of native coronary artery without angina pectoris; I50.9 Heart failure, unspecified; N18.9 Chronic kidney disease, unspecified; N20.0 Calculus of kidney; R59.0 Localized enlarged lymph nodes; R80.9 Proteinuria, unspecified
CPT/HCPCS: 36415; 71010-TC; 71250-TC; 76775-TC; 80048; 80053; 80074; 81003; 81015; 82550; 82553; 82570; 83520; 83615; 83735; 83880; 84100; 84132; 84156; 84484; 85025; 85610; 86038; 86256; 87040; 87086; 93005; 93010; 93306-TC; 99285-25

== ENCOUNTER 2016-08-22 01:47 | Emergency (ER) | payer OTHER ==
[2016-08-22 02:08] VITALS: BP 144/100; PULSE 80; BMI 30.2
[2016-08-22] MEDS ORDERED: morphine CARPU-JECT 2 MG/1 ML DISP.SYRIN IVPUSH ONE (02:49)
[2016-08-22 02:53] LABS: BASOPHIL 0.7 % (0-2.0); EOSINOPHIL 4.8 % (0-4.5); MEAN CELL VOLUME 84.4 fl (80-96); MEAN PLT VOLUME 8.3 fl (7.5-11.1); NEUTROPHILS 70.9 % (42.8-82.8); PLATELET COUNT 250 K/MM3 (134-434); RDW 15.2 % (11.9-15.9); WHITE BLOOD COUNT 10.7 K/mm3 (4.0-10.0)
[2016-08-22] MEDS ORDERED: morphine CARPU-JECT 2 MG/1 ML DISP.SYRIN ONE (02:54)
--- NOTE | 2016-08-22 03:05 | PDOC ---
History of Present Illness - General Chief Complaint: Pain Stated Complaint: KIDNEY PAIN Time Seen by Provider: 08/22/16 02:06 - History of Present Illness Initial Comments: 08/22/16 03:03 CHIEF COMPLAINT: flank pain HISTORY OF PRESENT ILLNESS: 50 yo with PMH of anxiety, depression, bipolar, schizoaffective disorder, recently diagnosed ARMIDA and CHF, and cocaine abuse presents to ED with left flank pain. Patient reports that he was discharged here recently and he continues to have L flank pain. He states that he was "supposed to get 3 medicines when I left but when I went to the pharmacy they only had one for me." He reports last using cocaine 2 days ago, after he was discharged from the hospital. PAST MEDICAL HISTORY: as per HPI FAMILY HISTORY: Denies SOCIAL HISTORY:Denies tobacco, alcohol, illicit drug use. SURGICAL HISTORY: Denies ALLERGIES: No known drug allergies REVIEW OF SYSTEMS General/Constitutional: Denies fever or chills. Denies weakness, weight change. HEENT: Denies change in vision. Denies ear pain or discharge. Denies sore throat. Cardiovascular: Denies chest pain or shortness of breath. Respiratory: Denies cough, wheezing, or hemoptysis. Gastrointestinal: Denies nausea, vomiting, diarrhea or constipation. Denies rectal bleeding. Genitourinary: Denies dysuria, frequency, or change in urination. Musculoskeletal: Denies joint or muscle swelling or pain. Denies neck or back pain. Skin and breasts: Denies rash or easy bruising. Neurologic: Denies headache, vertigo, loss of consciousness, or loss of sensation. PHYSICAL EXAM General Appearance: Well-appearing, appropriately dressed. No apparent distress , no intoxication. HEENT: EOMI, PERRLA, normal ENT inspection, normal voice, TMs normal, pharynx normal. No conjunctival pallor. No photophobia, scleral icterus. Neck: Supple. Trachea midline. No tenderness, rigidity, carotid bruit, stridor , lymphadenopathy, or thyromegaly. Respiratory/Chest: Lungs CTAB. No shortness of breath, chest tenderness, respiratory distress, accessory muscle use. No crackles, rales, rhonchi, stridor , wheezing, dullness Cardiovascular: RRR. S1, S2. No JVD, murmur, bradycardia, tachycardia. Vascular Pulses: Dorsalis-Pedis (R): 2+, Dorsalis-Pedis (L): 2+ Gastrointestinal/Abdominal: Normal bowel sounds. Abdomen soft, non-distended. No tenderness or rebound tenderness. No organomegaly, pulsatile mass, guarding , hernia, hepatomegaly, splenomegaly. Lymphatic: No adenopathy, tenderness. Musculoskeletal/Extremities: Normal inspection. FROM of all extremities, normal capillary refill. Pelvis Stable. No CVA tenderness. No tenderness to extremities, pedal edema, swelling, erythema or deformity. Integumentary: Appropriate color, dry, warm. No cyanosis, erythema, jaundice or rash Neurologic: sonar technician II-XII intact. Fully oriented, alert. Appropriate mood/affect. Motor strength 5/5. No appreciable EOM palsy, facial droop or sensory deficit. 08/22/16 04:09 Past History - Past Medical History Allergies/Adverse Reactions: Allergies Allergy/AdvReac Type Severity Reaction Status Date / Time No Known Allergies Allergy Verified 08/22/16 02:44 Home Medications: Ambulatory Orders NK [No Known Home Medication] 08/22/16 Anemia: No Asthma: No Cancer: No Cardiac Disorders: No CVA: No COPD: No CHF: No Dementia: No Diabetes: No GI Disorders: No Disorders: Yes (KIDNEY STONE) HTN: Yes Hypercholesterolemia: No Kidney Stones: Yes Liver Disease: No Psychiatric Problems: Yes (anxiety,depression,bipolar) Suicide Attempt (Hx): No Seizures: No Thyroid Disease: Yes (?) - Surgical History Abdominal Surgery: No Appendectomy: No Cardiac Surgery: No Cholecystectomy: Yes (in 2011) Lung Surgery: No Neurologic Surgery: No Orthopedic Surgery: No - Reproductive History Testicular Surgery: No - Immunization History Immunization Up to Date: Yes - Psycho/Social/Smoking Cessation Hx Anxiety: Yes Suicidal Ideation: No Smoking History: Current every day smoker Have you smoked in the past 12 months: Yes Number of Cigarettes Smoked Daily: 20 Information on smoking cessation initiated: No 'Breaking Loose' booklet given: 08/16/16 Hx Alcohol Use: No Drug/Substance Use Hx: No Substance Use Type: Alcohol, Cocaine Hx Substance Use Treatment: Yes Abd/GI Specific PMHX - Complaint Specific PMHX Hepatitis: No Pancreatitis: No *Physical Exam - Vital Signs Last Vital Signs Temp Pulse Resp BP Pulse Ox 80 14 144/100 97 08/22/16 01:59 08/22/16 01:59 08/22/16 01:59 08/22/16 01:59 ED Treatment Course - LABORATORY CBC & Chemistry Diagram: 08/22/16 02:43 08/22/16 02:43 - ADDITIONAL ORDERS Additional order review: Laboratory Results 08/22/16 02:43 WBC 10.7 H RBC 3.98 L Hgb 10.7 L Hct 33.6 L MCV 84.4 MCHC 32.0 RDW 15.2 Plt Count 250 MPV 8.3 Neutrophils % 70.9 Lymphocytes % 14.1 D Monocytes % 9.5 Eosinophils % 4.8 H Basophils % 0.7 08/22/16 02:43 RBC 3.98 L MCV 84.4 MCHC 32.0 RDW 15.2 MPV 8.3 Neutrophils % 70.9 Lymphocytes % 14.1 D Monocytes % 9.5 Eosinophils % 4.8 H Basophils % 0.7 - RADIOLOGY Radiology Studies Ordered: Category Date Time Status CHEST PA & LAT [RAD] Stat Radiology 08/22/16 02:31 Taken Medical Decision Making - Medical Decision Making 08/22/16 03:06 50 yo with PMH of anxiety, depression, bipolar, schizoaffective disorder, recently diagnosed ARMIDA and CHF, and cocaine abuse presents to ED with left flank pain. -CBC, CMP, PT/INR, Mg, card profile, BNP -UA, UCx -EKG, CXR Labs: WBC 10.8, creatinine 3.4 (elevated from 3.1 on discharge 2 days ago), BNP 5600 (decreased from last admission) CXR results: FINDINGS: The heart is mildly enlarged. Right middle lobe consolidation may represent atelectasis or pneumonia. The may be minimal right pleural effusion as well. No pulmonary edema. IMPRESSION: Right middle lobe atelectasis or pneumonia probable minimal effusion. Read by: Jair Mercedes MD CT results: FINDINGS: Lung bases are clear and small bilateral pleural effusions and minimal interstitial edema. Heart is borderline enlarged. Status post cholecystectomy no biliary duct dilation. Normal unenhanced liver, pancreas , spleen, adrenal glands and kidneys. The stomach and abdominal small and large bowel are normal. There is no aortic aneurysm. There is no significant retroperitoneal lymphadenopathy. The pelvic small and large bowel are normal. There is no evidence of appendicitis, although the appendix is not clearly visualized. The urinary bladder and prostate gland are normal. No pelvic free fluid is identified. There is no significant pelvic lymphadenopathy. There are prominent degenerative changes of the left hip with subchondral cyst formation in the left acetabulum. Less prominent degenerative changes are noted the right hip IMPRESSION: Small bilateral pleural effusions, borderline cardiomegaly and mild edema consistent with mild congestive heart failure, not significantly changed. No acute abdominal or pelvic pathology. Read by: Jair Mercedes MD 08/22/16 05:26 Clinical findings unchanged from recent discharge from hospital. Patient is stable to follow with nephrology for further evaluation and management of ARMIDA. Advised patient to follow up with PCP Lynnette Beckham as previously directed. 08/22/16 05:28 *DC/Admit/Observation/Transfer Diagnosis at time of Disposition: Cocaine dependence Qualifiers: Substance use status: uncomplicated Qualified Code(s): F14.20 - Cocaine dependence, uncomplicated Acute renal failure Qualifiers: Acute renal failure type: unspecified Qualified Code(s): N17.9 - Acute kidney failure, unspecified - Discharge Dispostion Disposition: HOME Condition at time of disposition: Stable Admit: No - Referrals Referrals: Jo Ann You MD [Staff Physician] - Jae Swenson MD [Staff Physician] - - Patient Instructions Printed Discharge Instructions: DI for Kidney Failure Additional Instructions: Please continue taking the medication that was previously prescribed to you. You MUST follow up with Dr. Beckham and your assembly manager Dr. You WITHIN THE NEXT TWO BUSINESS DAYS for further evaluation of your kidneys. You need to stop using cocaine. You have been provided a referral for Dr. Brayan Pham, who is a detox specialist. Please follow up with him tomorrow to discuss your request to attend a rehabilitation center. If you experience fever, chills, nausea, vomiting, shortness of breath, chest pain, or any new or worsening symptoms, please return to the ER.
[2016-08-22 03:11] LABS: INR 1.12 (0.82-1.09); PROTHROMBIN TIME (PATIENT) 12.4 SEC (9.98-11.88)
[2016-08-22 03:16] VITALS: TEMP 98.7
[2016-08-22 03:18] LABS: URINE APPEARANCE CLEAR; URINE BILIRUBIN NEGATIVE (NEGATIVE); URINE COLOR RED; URINE GLUCOSE (UA) NEGATIVE (NEGATIVE); URINE KETONE NEGATIVE (NEGATIVE); URINE LEUK ESTERASE NEGATIVE (NEGATIVE); URINE NITRITE NEGATIVE (NEGATIVE); URINE UROBILINOGEN NEGATIVE E.U./dl (0.2-1.0)
[2016-08-22 03:22] LABS: URINE BLOOD 3+ (NEGATIVE); URINE PROTEIN 2+ (NEGATIVE)
[2016-08-22 03:33] LABS: CALCIUM OXALATE CRYSTALS FEW /hpf (NONE SEEN); URINE BACTERIA MODERATE /hpf (NONE SEEN); URINE RBC 363 /hpf (0-3); URINE WBC 35 /hpf (3-5)
[2016-08-22 03:34] LABS: ALBUMIN 2.6 g/dl (3.4-5.0); BILIRUBIN,TOTAL 0.2 mg/dL (0.2-1.0); CALCIUM 7.7 mg/dL (8.5-10.1); COCKROFT - GAULT 34.94; CREATININE 3.4 mg/dL (0.7-1.3); TOT PROT 6.5 g/dl (6.4-8.2)
[2016-08-22 03:37] LABS: TROPONIN I 0.02 ng/ml (0.00-0.05)
[2016-08-22] MEDS ORDERED: ACETAMINOPHEN 1000 MG/100 ML VIAL (NON FORMULARY) IVPB ONE (04:09)
[2016-08-22] MEDS ORDERED: ACETAMINOPHEN INJECTION 100 ML IVPB ONE (04:36)
--- NOTE | 2016-08-22 11:02 | EKG ---
Test Reason : Blood Pressure : / mmHG Vent. Rate : 080 BPM Atrial Rate : 080 BPM P-R Int : 160 ms QRS Dur : 088 ms QT Int : 426 ms P-R-T Axes : 057 056 121 degrees QTc Int : 491 ms NORMAL SINUS RHYTHM T WAVE ABNORMALITY, CONSIDER LATERAL ISCHEMIA POOR R WAVE PROGRESSION PROLONGED QT ABNORMAL ECG WHEN COMPARED WITH ECG OF 17-AUG-2016 09:47, T WAVE INVERSION LESS EVIDENT IN LATERAL LEADS Confirmed by LALIT MATUTE MD ([id number]) on 08/22/2016 11:01:44 AM Referred By: Confirmed By:LALIT MATUTE MD
== END 2016-08-22 06:07 | disposition home or self-care (01) ==
LOC: JER 01:47
PROC: 3E033NZ Introduction of Analgesics, Hypnotics, Sedatives into Peripheral Vein, Percutaneous Approach (ICD-10-PCS; principal; 2016-08-22)
DX: F14.20 Cocaine dependence, uncomplicated (principal); N17.9 Acute kidney failure, unspecified; F17.210 Nicotine dependence, cigarettes, uncomplicated; I10 Essential (primary) hypertension; F32.9 Major depressive disorder, single episode, unspecified
CPT/HCPCS: 36415; 71020-TC; 74176; 80053; 81003; 81015; 82550; 82553; 83735; 83880; 84484; 85025; 85610; 87086; 93005; 93010; 96374; 96375; 99283-25